=== PATIENT | female | born 1950 | race Caucasian/White ===

== ENCOUNTER 2019-06-20 09:22 | Emergency (ER) | payer MEDICARE ==
[2019-06-20] MEDS ORDERED: solu-MEDROL 125 MG ONE (09:26)
[2019-06-20] MEDS ORDERED: Zofran 4 MG/2 ML VIAL ONE ×2 (09:26→13:09)
[2019-06-20] MEDS ORDERED: DUONEB 0.5-3 MG/3 ml Neb IH ONE ×2 (09:28→09:45)
[2019-06-20] MEDS ORDERED: Sodium Chloride 0.9% 1000 ML 1,000 ML ONE (09:28)
[2019-06-20] MEDS: DUONEB 0.5-3 MG/3 ml Neb IH ONE ×3 (09:37→10:11)
[2019-06-20] MEDS: Sodium Chloride 0.9% 1000 ML 1,000 ML IV STA (09:48)
[2019-06-20] MEDS: solu-MEDROL 125 MG IV ONE (09:48)
--- NOTE | 2019-06-20 09:48 | ERPHSYRPT ---
- History of Present Illness Time Seen by Provider: 06/20/19 09:24 Source: patient, EMS Physician History: 68 years old female with history of COPD is burning the ER by EMS with chief complaint of shortness of breath for the last 3 days. EMS found her on the floor with oxygen saturation around 75% on room air. She is placed on nonrebreather and on presentation still having respiratory distress. She is complaining of productive cough of yellow green sputum with more wheezing and tightness in the chest. Denies any fever or chills. Further history is limited secondary to acuity of condition. Timing/Duration: day(s) (3) Severity of Dyspnea-Max: severe Severity of Dyspnea-Current: severe Modifying Factors: Improves With: coughing Associated Symptoms: cough, wheezing, No leg swelling Allergies/Adverse Reactions: ciprofloxacin [From Cipro] Allergy (Severe, Verified 06/20/19 09:45) Swelling diphenhydramine HCl [From Benadryl] Allergy (Intermediate, Verified 03/26/14 13: 20) swelling, hives, seizures pentazocine lactate [From Talwin] Allergy (Intermediate, Verified 03/26/14 13:20 ) swelling, hives Penicillins Allergy (Verified 03/26/14 13:20) swelling,hives Home Medications: Bumetanide 1 mg [Bumex 1 mg] 1 mg PO DAILY 01/24/17 [History] Ergocalciferol (Vitamin D2) [Vitamin D] 50,000 unit PO WEEKLY 01/24/17 [History] Fluticasone/Salmeterol Disc [Advair 250-50 Diskus 14 Dose] 1 each IH BID 01/24/17 [History] Hydrocodone/Acetaminophen [Hydrocodon-Acetaminophn 10-325] 1 ea PO Q6H PRN PRN 01/24/17 [History] Levothyroxine Sodium 75 Mcg [Synthroid 75 Mcg] 75 mcg PO DAILY 01/24/17 [ History] Oxybutynin Chloride [Ditropan Xl] 5 mg PO BID 01/24/17 [History] Sotalol HCl 80 mg [Betapace 80 MG] 80 mg PO BID 01/24/17 [History] Hx Tetanus, Diphtheria Vaccination/Date Given: Yes Hx Influenza Vaccination/Date Given: No Hx Pneumococcal Vaccination/Date Given: No - Review of Systems Constitutional: Fatigue, Malaise Ears, Nose, & Throat: No Symptoms Respiratory: Cough, Dyspnea, Dyspnea on Exertion (MORIN), Wheezing Cardiac: Palpitations Abdominal/Gastrointestinal: No Symptoms Musculoskeletal: No Symptoms Skin: No Symptoms Neurological: No Symptoms Psychological: No Symptoms Endocrine: No Symptoms Hematologic/Lymphatic: No Symptoms Immunological/Allergic: No Symptoms - Past Medical History Pertinent Past Medical History: Yes Neurological History: Migraines, TIA ENT History: Cataracts Cardiac History: Hypertension, Other Respiratory History: COPD Endocrine Medical History: Thyroid Cancer Musculoskeletal History: Fibromyalgia, Osteoporosis, Rheumatoid Arthritis, Other GI Medical History: Diverticulosis History: No Pertinent History Psycho-Social History: No Pertinent History Female Reproductive Disorders: No Pertinent History Other Medical History: mvp. lupus. thyroid cancer. sepis of rt knee - Past Surgical History Past Surgical History: Yes Neuro Surgical History: No Pertinent History Cardiac: Cardiac Catheterization Respiratory: No Pertinent History Gastrointestinal: Cholecystectomy Genitourinary: No Pertinent History Musculoskeletal: Joint Replacement, Orthopedic Surgery Female Surgical History: Hysterectomy, Other Other Surgical History: bilateral cataracts,. bladder surgery. intestinal and stomach surgery. hiatal hernia repair. back surgery. right hip replacement. right knee replacement. I&D of rt knee - Social History Smoking Status: Former smoker How long have you smoked: 40 Exposure to second hand smoke: No Drug Use: none Patient Lives Alone: No - Nursing Vital Signs Nursing Vital Signs: Initial Vital Signs Pulse Rate 52 L 06/20/19 09:23 Respiratory Rate 28 H 06/20/19 09:23 Blood Pressure 122/95 06/20/19 09:23 O2 Sat by Pulse Oximetry 90 L 06/20/19 09:23 Pain Scale Pain Intensity 0 - Physical Exam General Appearance: moderate distress, alert Eye Exam: eyes nml inspection Ears, Nose, Throat Exam: hearing grossly normal, pharyngeal erythema Neck Exam: normal inspection, non-tender Respiratory Exam: respiratory distress, diminished breath sounds, accessory muscle use, wheezing, No chest tenderness Cardiovascular/Chest Exam: normal heart sounds, regular rate/rhythm Abdominal/Gastrointestinal Exam: soft, normal bowel sounds, No tenderness, No distention Extremity Exam: non-tender, normal range of motion Neurologic Exam: alert, oriented x 3, cooperative Skin Exam: normal color SpO2 Interpretation: O2 applied O2 Delivery: Nasal Cannula - Course Nursing assessment & vital signs reviewed: Yes EKG Interpreted by Me: RATE (120), Left [place] Deviation, Other Ordered Tests: Active Orders 24 hr Category Date Time Status [employer] G[employer]r STAT Care 06/20/19 09:42 Active EKG-ER Only STAT Care 06/20/19 09:40 Active CHEST 1 VIEW (PORTABLE) Stat Exams 06/20/19 09:42 Completed ABG [ARTERIAL BLOOD GASES] Urgent Lab 06/20/19 09:35 Ordered ARTERIAL BLOOD GASES Stat Lab 06/20/19 10:00 Results BLOOD CULTURE Stat Lab 06/20/19 10:14 Received CBC W DIFF Stat Lab 06/20/19 10:14 Completed CK (IN-HOUSE) [CK-Creatinine Phosphokinase] Stat Lab 06/20/19 10:14 Completed CMP Stat Lab 06/20/19 10:14 Completed CULTURE,SPUTUM Stat Lab 06/20/19 09:42 Uncollected Lactic Acid Stat Lab 06/20/19 10:00 Results MAGNESIUM Stat Lab 06/20/19 10:14 Completed Manual Differential NC Stat Lab 06/20/19 10:14 Completed NT PRO BNP Stat Lab 06/20/19 10:14 Completed TROPONIN Q3H Lab 06/20/19 10:20 Completed TROPONIN Q3H Lab 06/20/19 12:45 Ordered TROPONIN Q3H Lab 06/20/19 15:45 Ordered TROPONIN Q3H Lab 06/20/19 18:45 Ordered TROPONIN Q3H Lab 06/20/19 21:45 Ordered BiPap/CPAP STAT RT 06/20/19 09:40 Active Respiratory Therapy Assessment DAILY RT 06/20/19 09:38 Active Medication Summary Generic Name Dose Route Start Last Admin Trade Name Freq PRN Reason Stop Dose Admin Azithromycin 500 mg in 250 mls @ 250 mls/hr 06/20/19 10:49 Zithromax 500 Mg/ 250 Ml Nacl Premix IV 06/20/19 11:48 STAT STA Discontinued Medications Generic Name Dose Route Start Last Admin Trade Name Freq PRN Reason Stop Dose Admin Albuterol/Ipratropium Confirm 06/20/19 09:28 Duoneb 0.5-3 Mg/3 Ml Neb Administered 06/20/19 09:29 Dose 3 ml IH .STK-MED ONE Albuterol/Ipratropium 3 ml 06/20/19 09:36 06/20/19 09:37 Duoneb 0.5-3 Mg/3 Ml Neb IH 06/20/19 09:37 3 ml STAT ONE Administration Albuterol/Ipratropium 3 ml 06/20/19 09:40 06/20/19 09:44 Duoneb 0.5-3 Mg/3 Ml Neb IH 06/20/19 09:41 3 ml STAT ONE Administration Albuterol/Ipratropium Confirm 06/20/19 09:45 Duoneb 0.5-3 Mg/3 Ml Neb Administered 06/20/19 09:46 Dose 3 ml IH .STK-MED ONE Albuterol/Ipratropium 3 ml 06/20/19 10:09 06/20/19 10:11 Duoneb 0.5-3 Mg/3 Ml Neb IH 06/20/19 10:10 Not Given STAT ONE Aspirin 324 mg 06/20/19 11:16 06/20/19 11:42 Baby Aspirin 81 Mg Chew PO 06/20/19 11:17 324 mg STAT ONE Administration Sodium Chloride Confirm 06/20/19 09:28 Sodium Chloride 0.9% 1000 Ml Administered 06/20/19 09:29 Dose 1,000 mls @ ud .ROUTE .STK-MED ONE Sodium Chloride 1,000 mls @ 999 mls/hr 06/20/19 09:40 06/20/19 11:27 Sodium Chloride 0.9% 1000 Ml IV 06/20/19 10:40 Infused .Q1H1M STA Infusion Ceftriaxone Sodium/Dextrose 1 g in 50 mls @ 100 mls/hr 06/20/19 10:49 Rocephin 1 Gm-D5w 50 Ml Bag IV 06/20/19 11:18 STAT STA Sodium Chloride Confirm 06/20/19 11:06 Sodium Chloride 0.9% 500 Ml Administered 06/20/19 11:07 Dose 500 mls @ ud IV .STK-MED ONE Methylprednisolone Sodium Succinate Confirm 06/20/19 09:26 Solu-Medrol 125 Mg Administered 06/20/19 09:27 Dose 125 mg .ROUTE .STK-MED ONE Methylprednisolone Sodium Succinate 125 mg 06/20/19 09:40 06/20/19 09:48 Solu-Medrol 125 Mg IV 06/20/19 09:41 125 mg STAT ONE Administration Ondansetron HCl Confirm 06/20/19 09:26 Zofran 4 Mg/2 Ml Vial Administered 06/20/19 09:27 Dose 4 mg .ROUTE .STK-MED ONE Ondansetron HCl 4 mg 06/20/19 09:48 06/20/19 09:49 Zofran 4 Mg/2 Ml Vial IV 06/20/19 09:49 4 mg STAT ONE Administration Lab/Rad Data: Laboratory Result Diagrams 06/20/19 10:14 06/20/19 10:14 Laboratory Results 06/20/19 06/20/19 06/20/19 Range/Units 10:20 10:14 10:14 WBC (4.0-10.5) K/mm3 RBC (4.1-5.4) M/mm3 Hgb (12.0-16.0) gm/dl Hct (35-47) % MCV (78-100) fl MCH (26-32) pg MCHC (32-36) g/dl RDW (11.5-14.0) % Plt Count (150-450) K/mm3 MPV (6-9.5) fl Segmented Neutrophils (36.0-66.0) % Band Neutrophils (0.0-2.0) % Lymphocytes (Manual) (24-44) % Monocytes (Manual) (0.0-12.0) % Toxic Granulation Platelet Estimate (NORMAL) RBC Morphology Puncture Site pCO2 (35-45) mmHg pO2 (75-100) mmHg Base Excess (-2.0-2.0) O2 Saturation (94-100) g/dF ABG pH (7.35-7.45) ABG HCO3 (22-28) ABG O2 Sat (Measured) (95-100) % Nicola Test A-a Gradient a/A Ratio Hemoglobin Carboxyhemoglobin (0.0-6.9) % THgb Methemoglobin (1.4-1.5) % Potassium 5.5 H (3.5-5.1) Temperature C POC O2 Flow Rate % Sodium 145 (137-145) mmol/L Chloride 112 H (98-107) mmol/L Carbon Dioxide 27 (22-30) mmol/L Anion Gap 11.4 (5-15) MEQ/L BUN 14 (7-17) mg/dL Creatinine 0.74 (0.52-1.04) mg/dL Estimated GFR > 60.0 ML/MIN Glucose 236 H (74-106) mg/dL Lactic Acid (0.4-2.0) Calcium 8.1 L (8.4-10.2) mg/dL Magnesium 2.1 (1.6-2.3) mg/dL Total Bilirubin 0.30 (0.2-1.3) mg/dL AST 120 H (14-36) U/L ALT 44 H (0-35) U/L Alkaline Phosphatase 83 (38-126) U/L Creatine Kinase 49 (30-135) U/L Troponin I 0.429 H* (0.000-0.034) ng/mL NT-Pro-B Natriuret Pep 5640 H (0-900) pg/mL Serum Total Protein 5.7 L (6.3-8.2) g/dL Albumin 3.1 L (3.5-5.0) g/dL 06/20/19 06/20/19 Range/Units 10:14 10:00 WBC 15.3 H (4.0-10.5) K/mm3 RBC 4.06 L (4.1-5.4) M/mm3 Hgb 13.7 (12.0-16.0) gm/dl Hct 43.2 (35-47) % MCV 106.4 H (78-100) fl MCH 33.7 H (26-32) pg MCHC 31.7 L (32-36) g/dl RDW 13.0 (11.5-14.0) % Plt Count 250 (150-450) K/mm3 MPV 10.7 H (6-9.5) fl Segmented Neutrophils 85 H (36.0-66.0) % Band Neutrophils 3 H (0.0-2.0) % Lymphocytes (Manual) 8 L (24-44) % Monocytes (Manual) 4 (0.0-12.0) % Toxic Granulation 1+ Platelet Estimate NORMAL (NORMAL) RBC Morphology NORMAL Puncture Site RIGHT BRACHIAL pCO2 45 (35-45) mmHg pO2 64 L (75-100) mmHg Base Excess -6.1 L (-2.0-2.0) O2 Saturation 89.5 L (94-100) g/dF ABG pH 7.27 L (7.35-7.45) ABG HCO3 20.7 L (22-28) ABG O2 Sat (Measured) 92.4 L (95-100) % Nicola Test NOT APPLICABLE A-a Gradient 136 a/A Ratio 0.32 Hemoglobin 12.4 Carboxyhemoglobin 2.5 (0.0-6.9) % THgb Methemoglobin 0.7 L (1.4-1.5) % Potassium 4.2 (3.5-5.1) Temperature 37.0 C POC O2 Flow Rate 36 % Sodium (137-145) mmol/L Chloride (98-107) mmol/L Carbon Dioxide (22-30) mmol/L Anion Gap (5-15) MEQ/L BUN (7-17) mg/dL Creatinine (0.52-1.04) mg/dL Estimated GFR ML/MIN Glucose (74-106) mg/dL Lactic Acid 3.7 H (0.4-2.0) Calcium (8.4-10.2) mg/dL Magnesium (1.6-2.3) mg/dL Total Bilirubin (0.2-1.3) mg/dL AST (14-36) U/L ALT (0-35) U/L Alkaline Phosphatase (38-126) U/L Creatine Kinase (30-135) U/L Troponin I (0.000-0.034) ng/mL NT-Pro-B Natriuret Pep (0-900) pg/mL Serum Total Protein (6.3-8.2) g/dL Albumin (3.5-5.0) g/dL - Progress Progress: improved, re-examined Air Movement: fair Progress Note: 6 ED his old is brought in the ER with severe respiratory distress. She is given multiple DuoNeb treatments/steroids IV but still had some difficulty breathing with accessory muscle use. ABG showed pH 7.2 the chest x-ray showing pulmonary edema but no cardiomegaly. She does have elevated BNP with elevated lactate of 3.7. Started on IV antibiotics. Given a bolus of fluid. I believe patient has COPD exacerbation the developing pneumonia and some element of CHF exacerbation as well with elevated BNP and troponin of 0.42. EKG did not show any acute ST elevations but does have some T-wave inversions in lateral leads. She is given aspirin. On reevaluation the patient is feeling better. Discussed with Dr. Reynolds, recommended transfer to high level of care because of her multiple comorbidities needed speciality care. 06/20/19 11:18 06/20/19 11:44 D/W at [facility] and patient is accepted for transfer. Blood Culture(s) Obtained: Yes Antibiotics given: Yes Discussed with : Ellie Will see patient in: other (transfer to higher level of care ) Counseled pt/family regarding: lab results, diagnosis, need for follow-up, rad results - Departure Departure Disposition: Transfer Clinical Impression: NSTEMI (non-ST elevated myocardial infarction), COPD exacerbation Respiratory failure Qualifiers: Chronicity: acute on chronic Respiratory failure complication: hypoxia Qualified Code(s): J96.21 - Acute and chronic respiratory failure with hypoxia Sepsis Qualifiers: Sepsis type: sepsis due to unspecified organism Sepsis acute organ dysfunction status: with acute organ dysfunction Severe sepsis acute organ dysfunction type : acute respiratory failure Acute respiratory failure type: with hypoxia Severe sepsis shock status: without septic shock Qualified Code(s): A41.9 - Sepsis, unspecified organism; R65.20 - Severe sepsis without septic shock; J96.01 - Acute respiratory failure with hypoxia Condition: Fair Critical Care Time: Yes Critical Care Time(excluding separately billable procedures): Critical 30-74 mins Referrals: CHANG MENDOZA MD [Primary Care Provider] - Instructions: Chronic Obstructive Pulmonary Disease
[2019-06-20] MEDS: Zofran 4 MG/2 ML VIAL IV ONE ×2 (09:49→13:13)
--- NOTE | 2019-06-20 10:05 | XRAY ---
Indication: Short of breath. Comparison: March 20, 2009. Portable chest demonstrates new diffuse pulmonary edema with small bibasilar effusions. Heart is not enlarged. Bony thorax again demonstrates osteopenia with interval T8-T11 kyphoplasty and lower cervical fusion surgery. Impression: New diffuse pulmonary edema and small effusions without cardiomegaly. Rule out noncardiogenic causes.
[2019-06-20 10:06] LABS: A-aADO2 136; ABG HEMOGLOBIN 12.4; ABG POTASSIUM 4.2 (3.5-5.1); ARTERIAL BLD GAS O2 SATURATION 92.4 % (95-100); ARTERIAL BLOOD GAS BASE EXCESS -6.1 (-2.0-2.0); ARTERIAL BLOOD GAS FIO2 36 %; ARTERIAL BLOOD GAS PCO2 45 mmHg (35-45); ARTERIAL BLOOD GAS PO2 64 mmHg (75-100); ARTERIAL BLOOD GAS pH 7.27 (7.35-7.45); CARBOXYHEMOGLOBIN 2.5 % THgb (0.0-6.9); HCO3- 20.7 (22-28); HGB O2 SAT 89.5 g/dF (94-100); Lactic Acid 3.7 (0.4-2.0); Methhemoglobin 0.7 % (1.4-1.5); paO2 pAO1 0.32
[2019-06-20 10:07] LABS: ABG SITE RIGHT BRACHIAL
[2019-06-20 10:39] LABS: Hematocrit 43.2 % (35-47); Hemoglobin 13.7 gm/dl (12.0-16.0); Mean Cell Volume 106.4 fl (78-100); Mean Corpuscular Hemoglobin 33.7 pg (26-32); Mean Corpuscular Hgb Concent. 31.7 g/dl (32-36); Mean Platelet Volume 10.7 fl (6-9.5); Platelet Count 250 K/mm3 (150-450); Red Blood Count 4.06 M/mm3 (4.1-5.4); White Blood Count 15.3 K/mm3 (4.0-10.5)
[2019-06-20 11:03] LABS: ALBUMIN 3.1 g/dL (3.5-5.0); ALKALINE PHOSPHATASE 83 U/L (38-126); ANION GAP 11.4 MEQ/L (5-15); BLOOD UREA NITROGEN 14 mg/dL (7-17); CHLORIDE 112 mmol/L (98-107); Calcium 8.1 mg/dL (8.4-10.2); Carbon Dioxide 27 mmol/L (22-30); Creatinine 1 0.74 mg/dL (0.52-1.04); Glucose 236 mg/dL (74-106); MAGNESIUM 2.1 mg/dL (1.6-2.3); NT PRO BNP 5640 pg/mL (0-900); Potassium 5.5 mmol/L (3.5-5.1); SGOT/AST 120 U/L (14-36); SGPT/ALT 44 U/L (0-35); SODIUM 145 mmol/L (137-145); Total Protein 5.7 g/dL (6.3-8.2)
[2019-06-20] MEDS ORDERED: Sodium Chloride 0.9% 500 ML 500 ML IV ONE (11:06)
[2019-06-20 11:24] LABS: BAND 3 % (0.0-2.0); Lymphocytes 8 % (24-44); Monocyte 4 % (0.0-12.0); Neutrophils 85 % (36.0-66.0); Total Cells Counted 100
[2019-06-20 11:25] LABS: Toxic Granulation 1+
[2019-06-20 11:26] LABS: Platelet Estimate NORMAL (NORMAL)
[2019-06-20] MEDS: BABY ASPIRIN 81 MG CHEW PO ONE (11:42)
[2019-06-20] MEDS ORDERED: ROCEPHIN 1 Gm-D5w 50 ml Bag** 1 G/50 ML IVPB IV ONE (12:26)
[2019-06-20] MEDS: ROCEPHIN 1 Gm-D5w 50 ml Bag** 1 G/50 ML IVPB IV STA (12:31)
[2019-06-20] MEDS ORDERED: Zithromax 500 MG/ 250 ML NaCl Premix 500 MG/250 ML IVPB IV ONE (12:32)
[2019-06-20] MEDS: Zithromax 500 MG/ 250 ML NaCl Premix 500 MG/250 ML IVPB IV STA (12:40)
[2019-06-20 13:12] VITALS: BP 121/74; PULSE 110; O2SAT 96
== END 2019-06-20 13:13 ==
LOC: ED 09:22
DX: I21.3 ST elevation (STEMI) myocardial infarction of unspecified site (principal); J44.1 Chronic obstructive pulmonary disease with (acute) exacerbation; J96.21 Acute and chronic respiratory failure with hypoxia; A41.9 Sepsis, unspecified organism; R65.20 Severe sepsis without septic shock; J96.01 Acute respiratory failure with hypoxia; I10 Essential (primary) hypertension
CPT/HCPCS: 36415; 36600; 71045; 80053; 82375; 82550; 82803; 83605; 83735; 83880; 84484; 85025; 87040; 93005; 93041; 94640; 96360; 96365; 96368; 96374; 96375; 96376; 99285; 99291; J0456; J0696; J2405; J2930; A9270-GY

== ENCOUNTER 2020-04-22 12:55 | Emergency (ER) | payer MEDICARE ==
[2020-04-22] MEDS ORDERED: MORPHINE SULFATE 4 MG INJ IV ONE (13:17)
[2020-04-22] MEDS ORDERED: MORPHINE SULFATE 4 MG INJ IM STA (13:22)
--- NOTE | 2020-04-22 13:22 | ERPHSYRPT ---
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 has herb to right stump no drainage noted, no reddness or swelling Physician History: Patient is a 69-year-old female who presents to our ED for evaluation of a postsurgical wound. 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 Patient had a revision 3 days ago. Patient observed a clear drainage from the wound. Patient became concerned for possible infection. She checked her temperature and found it to be 100. Patient concern for infection. No trauma. No nausea or vomiting. No diarrhea. No rash. Patient has been taking her pain medication as prescribed. Patient voices no other complaints at this time. Timing/Duration: today Severity: moderate Associated Symptoms: No nausea, No vomiting, No abdominal pain, No shortness of breath, No heartburn, No diaphoresis, No cough, No chills, No chest pain, No fever, No headaches, No loss of appetite, No malaise, No syncope, No seizure, No weakness Allergies/Adverse Reactions: ciprofloxacin [From Cipro] Allergy (Severe, Verified 04/22/20 13:12) Swelling diphenhydramine HCl [From Benadryl] Allergy (Intermediate, Verified 04/22/20 13:12) swelling, hives, seizures pentazocine lactate [From Talwin] Allergy (Intermediate, Verified 04/22/20 13:12) swelling, hives Penicillins Allergy (Verified 04/22/20 13:12) swelling,hives Home Medications: Ergocalciferol (Vitamin D2) [Vitamin D] 50,000 unit PO WEEKLY 01/24/17 [History] Fluticasone/Salmeterol Disc [Advair 250-50 Diskus 14 Dose] 1 each IH BID 01/24/17 [History] Hydrocodone/Acetaminophen [Hydrocodon-Acetaminophn 10-325] 1 ea PO Q6H PRN PRN 01/24/17 [History] Levothyroxine Sodium 75 Mcg [Synthroid 75 Mcg] 75 mcg PO DAILY 01/24/17 [History] Oxybutynin Chloride [Ditropan Xl] 5 mg PO BID 01/24/17 [History] Hx Tetanus, Diphtheria Vaccination/Date Given: Yes Hx Influenza Vaccination/Date Given: Yes Hx Pneumococcal Vaccination/Date Given: Yes Travel Risk - International Travel Have you traveled outside of the country in past 3 weeks: No - Coronavirus Screening Are you exhibiting any of the following symptoms?: No Close contact with a COVID-19 positive Pt in past 14-21 Days: No - Review of Systems Constitutional: No Symptoms, No Fever, No Chills Eyes: No Symptoms Ears, Nose, & Throat: No Symptoms Respiratory: No Symptoms, No Cough, No Dyspnea Cardiac: No Symptoms, No Chest Pain, No Edema, No Syncope Abdominal/Gastrointestinal: No Symptoms, No Abdominal Pain, No Nausea, No Vomiting, No Diarrhea Genitourinary Symptoms: No Symptoms, No Dysuria Musculoskeletal: No Symptoms, No Back Pain, No Neck Pain Skin: No Symptoms, No Rash Neurological: No Symptoms, No Dizziness, No Focal Weakness, No Sensory Changes Psychological: No Symptoms Endocrine: No Symptoms Hematologic/Lymphatic: No Symptoms Immunological/Allergic: No Symptoms All Other Systems: Reviewed and Negative - Past Medical History Pertinent Past Medical History: Yes Neurological History: Migraines, TIA ENT History: Cataracts Cardiac History: Hypertension, Other Respiratory History: COPD Endocrine Medical History: Thyroid Cancer Musculoskeletal History: Fibromyalgia, Osteoporosis, Rheumatoid Arthritis, Other GI Medical History: Diverticulosis History: No Pertinent History Psycho-Social History: No Pertinent History Female Reproductive Disorders: No Pertinent History Other Medical History: mvp. lupus. thyroid cancer. sepis of rt knee - Past Surgical History Past Surgical History: Yes Neuro Surgical History: No Pertinent History Cardiac: Cardiac Catheterization Respiratory: No Pertinent History Gastrointestinal: Cholecystectomy Genitourinary: No Pertinent History Musculoskeletal: Amputation, Joint Replacement, Orthopedic Surgery Female Surgical History: Hysterectomy, Other Other Surgical History: bilateral cataracts,. bladder surgery. intestinal and stomach surgery. hiatal hernia repair. back surgery. right hip replacement. right knee replacement. I&D of rt knee - Social History Smoking Status: Former smoker How long have you smoked: 40 Exposure to second hand smoke: No Drug Use: none Patient Lives Alone: No - Female History Hx Last Menstrual Period: post Hx Now: No - Nursing Vital Signs Nursing Vital Signs: Initial Vital Signs Temperature 98.3 F 04/22/20 12:59 Pulse Rate 96 H 04/22/20 12:59 Respiratory Rate 16 04/22/20 12:59 Blood Pressure 151/91 04/22/20 12:59 O2 Sat by Pulse Oximetry 96 04/22/20 12:59 Pain Scale Pain Intensity 10 - Physical Exam General Appearance: no apparent distress, alert Eye Exam: PERRL/EOMI, eyes nml inspection Ears, Nose, Throat Exam: normal ENT inspection, TMs normal, pharynx normal, moist mucous membranes Neck Exam: normal inspection, non-tender, supple, full range of motion Respiratory Exam: normal breath sounds, lungs clear, No respiratory distress Cardiovascular Exam: regular rate/rhythm, normal heart sounds, normal peripheral pulses Gastrointestinal/Abdomen Exam: soft, normal bowel sounds, No tenderness, No mass Back Exam: normal inspection, normal range of motion, No CVA tenderness, No vertebral tenderness Extremity Exam: normal inspection, normal range of motion, pelvis stable, other (Right above-knee amputation. [place] intact. No active drainage. No cellulitis. No lymphangitis. No lymphadenopathy. No foul odor. The wound appears to be healing well. Patient currently afebrile.) Neurologic Exam: alert, oriented x 3, cooperative, normal mood/affect, nml cerebellar function, sensation nml, No motor deficits Skin Exam: normal color, warm, dry, No rash Lymphatic Exam: No adenopathy SpO2 Interpretation: normal SpO2: 96 O2 Delivery: Room Air - Course Nursing assessment & vital signs reviewed: Yes Ordered Tests: Active Orders 24 hr Category Date Time Status UA W/RFX UR CULTURE Stat Lab 04/22/20 13:19 Completed Medication Summary Discontinued Medications Generic Name Dose Route Start Last Admin Trade Name Freq PRN Reason Stop Dose Admin Morphine Sulfate 4 mg 04/22/20 13:17 04/22/20 13:21 Morphine Sulfate 4 Mg Inj IV 04/22/20 13:18 Not Given STAT ONE Morphine Sulfate 4 mg 04/22/20 13:22 04/22/20 13:27 Morphine Sulfate 4 Mg Inj IM 04/22/20 13:23 4 mg ONCE STA Administration Morphine Sulfate Confirm 04/22/20 13:25 Morphine Sulfate 4 Mg Inj Administered 04/22/20 13:26 Dose 4 mg .ROUTE .STK-MED ONE Lab/Rad Data: Laboratory Results 04/22/20 Range/Units 13:19 Urine Color YELLOW (YELLOW) Urine Appearance CLEAR (CLEAR) Urine pH 9.0 (5-6) Ur Specific [place] 1.008 (1.005-1.025) Urine Protein NEGATIVE (Negative) Urine Ketones NEGATIVE (NEGATIVE) Urine Blood SMALL (0-5) Fady/ul Urine Nitrite NEGATIVE (NEGATIVE) Urine Bilirubin NEGATIVE (NEGATIVE) Urine Urobilinogen NEGATIVE (0-1) mg/dL Ur Leukocyte Esterase NEGATIVE (NEGATIVE) Urine WBC (Auto) NONE (0-5) /HPF Urine RBC (Auto) 0-2 (0-2) /HPF U Epithel Cells (Auto) NONE (FEW) /HPF Urine Bacteria (Auto) NONE (NEGATIVE) /HPF Urine Culture Reflexed NO (NO) Urine Glucose NEGATIVE (NEGATIVE) mg/dL - Progress Progress: improved Progress Note: 04/22/20 13:29 Patient reassessed. Pain improved. Patient requesting discharge. No indication for imaging studies or further work-up at this time. Patient currently afebrile. The wound appears to be healing well. UA shows microscopic hematuria. No UTI. Patient currently has a follow-up appointment scheduled with her physician in 10 days. Patient advised to reschedule for sooner appointment for reevaluation. Patient agrees to do so. 04/22/20 13:51 Counseled pt/family regarding: diagnosis, need for follow-up - Departure Departure Disposition: Home Clinical Impression: Visit for wound check, Post-operative pain, Microscopic hematuria Condition: Stable Critical Care Time: No Referrals: TESSY VEGAS [Primary Care Provider] - Additional Instructions: Discharge/Care Plan SPIKE WINKLER was seen on 04/22/20 in the Emergency Room. The patient was counseled regarding Diagnosis,Lab results, Imaging studies, need for follow up and when to return to the Emergency Room. Prescriptions given: Discharge Note I have spoken with the patient and/or caregivers. I have explained the patient's condition, diagnosis and treatment plan based on the information available to me at this time. I have answered the patient's and/or caregiver's questions and addressed any concerns. The patient and/or caregivers have as good understanding of the patient's diagnosis, condition and treatment plan as can be expected at this point. The vital signs have been stable. The patient's condition is stable and appropriate for discharge from the emergency department. The patient will pursue further outpatient evaluation with the primary care physician or other designated or consulting physician as outlined in the disch arge instructions. The patient and/or caregivers are agreeable to this plan of care and follow-up instructions have been explained in detail. The patient and/or caregivers have received these instruction. The patient/and or caregivers are aware that any significant change in condition or worsening of symptoms should prompt an immediate return to this or the closest emergency department or call 911.
[2020-04-22] MEDS ORDERED: MORPHINE SULFATE 4 MG INJ ONE (13:25)
[2020-04-22 13:43] LABS: Appearance CLEAR (CLEAR); Bilirubin NEGATIVE (NEGATIVE); Blood SMALL Ery/ul (0-5); Glucose NEGATIVE (NEGATIVE); Ketones NEGATIVE (NEGATIVE); Leukocyte Esterase NEGATIVE (NEGATIVE); Nitrite NEGATIVE (NEGATIVE); Protein,Urine Dip NEGATIVE (Negative); RBC 0-2 /HPF (0-2); Specific Gravity 1.008 (1.005-1.025); Urobilinogen NEGATIVE mg/dL (0-1)
[2020-04-22 14:00] VITALS: BP 142/82; PULSE 88; O2SAT 98
== END 2020-04-22 14:10 | disposition home or self-care (01) ==
LOC: ED 12:55
DX: Z48.89 Encounter for other specified surgical aftercare (principal); G89.18 Other acute postprocedural pain; R31.29 Other microscopic hematuria; I10 Essential (primary) hypertension; J44.9 Chronic obstructive pulmonary disease, unspecified; Z85.850 Personal history of malignant neoplasm of thyroid; M81.0 Age-related osteoporosis without current pathological fracture; M06.9 Rheumatoid arthritis, unspecified; M79.7 Fibromyalgia
CPT/HCPCS: 81001; 96372; 99284; J2270

== ENCOUNTER 2021-07-28 22:57 | Inpatient (IN) | payer MEDICARE ==
--- NOTE | 2021-07-28 22:58 | ERPHSYRPT ---
- History of Present Illness Time Seen by Provider: 07/28/21 22:58 Source: patient, EMS Physician History: This is a 70-year-old white female who presents via EMS confused. The patients family called EMS because of this sudden onset of confusion approximately 25 minutes prior to their arrival. Patient does take sertraline, Ativan, hydrocodone and morphine. Family does not believe that she took too much of this but is a possibility. Patient arrives to the emergency department moving all her extremities but confused. Patient has a history of migraine headache, hypertension, COPD, and hypothyroidism. There is no known history of head trauma this evening. Timing/Duration: today Severity: moderate Deficits: cannot stand, cannot walk Baseline/Normal Cognition: alert oriented x 3 Current Cognition: alert but confused Baseline Gait: walks w/o assistance Associated Symptoms: confusion, No loss of consciousness Allergies/Adverse Reactions: ciprofloxacin [From Cipro] Allergy (Severe, Verified 07/29/21 01:56) Swelling diphenhydramine HCl [From Benadryl] Allergy (Intermediate, Verified 07/29/21 01:56) swelling, hives, seizures pentazocine lactate [From Talwin] Allergy (Intermediate, Verified 07/29/21 01:56) swelling, hives Penicillins Allergy (Verified 07/29/21 01:56) swelling,hives Home Medications: Hydrocodone/Acetaminophen [Hydrocodon-Acetaminophn 10-325] 1 ea PO Q6H PRN PRN 01/24/17 [History] Levothyroxine Sodium 75 Mcg [Synthroid 75 Mcg] 175 mcg PO DAILY 01/24/17 [History] Albuterol Sulfate 4 mg PO DAILY 07/29/21 [History] Amitriptyline HCl 25 mg [Elavil 25 mg] 25 mg PO HS 07/29/21 [History] Atorvastatin Calcium [Lipitor] 40 mg PO DAILY 07/29/21 [History] Calcium Citrate/Vitamin D3 [Citracal-Vit D3 200 mg-250 Tab] 2 each PO TID 07/29/21 [History] Cariprazine HCl [Vraylar] 3 mg PO DAILY 07/29/21 [History] Furosemide [Lasix] 20 mg PO DAILY 07/29/21 [History] Gabapentin 300 mg [Neurontin 300 mg] 600 mg PO TID 12/08/21 [History] Iron Polysaccharides Complex [Ferrex 150] 150 mg PO DAILY 07/29/21 [History] Lorazepam 1 mg [Ativan 1 MG] 1 mg PO TID 07/29/21 [History] Metoprolol Succinate [Toprol Xl] 25 mg PO DAILY 07/29/21 [History] Morphine Sulfate [Morphine Sulfate ER] 15 mg PO BID 07/29/21 [History] Multivitamin with Minerals [One Daily Complete] 1 each PO DAILY 07/29/21 [History] Oxybutynin Chloride [Oxybutynin Chloride ER] 5 mg PO DAILY 07/29/21 [History] Potassium Gluconate [Potassium] 99 mg PO DAILY 07/29/21 [History] Sertraline HCl [Zoloft] 100 mg PO DAILY 07/29/21 [History] Sotalol HCl [Sotalol] 160 mg PO BID 07/29/21 [History] Spironolactone [Aldactone] 12.5 mg PO DAILY 07/29/21 [History] lisinopriL [Lisinopril] 2.5 mg PO DAILY 07/29/21 [History] Hx Tetanus, Diphtheria Vaccination/Date Given: Yes Hx Influenza Vaccination/Date Given: Yes Hx Pneumococcal Vaccination/Date Given: Yes Travel Risk - International Travel Have you traveled outside of the country in past 3 weeks: No - Coronavirus Screening Are you exhibiting any of the following symptoms?: No Close contact with a COVID-19 positive Pt in past 14-21 Days: No - Review of Systems Constitutional: Weakness Eyes: No Symptoms Ears, Nose, & Throat: No Symptoms Respiratory: No Symptoms Cardiac: No Symptoms Abdominal/Gastrointestinal: No Symptoms Genitourinary Symptoms: No Symptoms Musculoskeletal: No Symptoms Skin: No Symptoms Neurological: Other (Altered mental status, confusion) Psychological: No Symptoms Endocrine: No Symptoms Hematologic/Lymphatic: No Symptoms Immunological/Allergic: No Symptoms All Other Systems: Reviewed and Negative - Past Medical History Pertinent Past Medical History: Yes Neurological History: Migraines ENT History: Cataracts Cardiac History: Hypertension Respiratory History: COPD Endocrine Medical History: Hypothyroidism Musculoskeletal History: Other GI Medical History: Diverticulosis History: No Pertinent History Psycho-Social History: No Pertinent History Female Reproductive Disorders: No Pertinent History Other Medical History: mitral valve prolapse, R AKA - Past Surgical History Past Surgical History: Yes Neuro Surgical History: No Pertinent History Cardiac: Cardiac Catheterization Respiratory: No Pertinent History Gastrointestinal: Cholecystectomy Genitourinary: No Pertinent History Musculoskeletal: Amputation, Joint Replacement, Orthopedic Surgery Female Surgical History: Hysterectomy, Other Other Surgical History: bilateral cataracts,. bladder surgery. intestinal and stomach surgery. hiatal hernia repair. back surgery. right hip replacement. right knee replacement. I&D of rt knee - Social History Smoking Status: Former smoker How long have you smoked: 40 Exposure to second hand smoke: No Drug Use: none Patient Lives Alone: No - Nursing Vital Signs Nursing Vital Signs: Initial Vital Signs Temperature 100.3 F 07/28/21 23:28 Pulse Rate 117 H 07/28/21 23:28 Blood Pressure 133/67 07/28/21 23:28 O2 Sat by Pulse Oximetry 97 07/28/21 23:28 - Lewis Coma Scale Best Eye Response (Lewis): (4) open spontaneously Best Verbal Response (Lewis): (4) confused conversation Best Motor Response (Lewis): (5) localizes to pain Lewis Total: 13 - Physical Exam General Appearance: mild distress, alert, anxiety Eye Exam: bilateral eye: normal inspection, PERRL, EOMI Ears, Nose, Throat Exam: dry mucous membranes, other (Edentulous) Neck Exam: normal inspection, non-tender, supple, full range of motion Respiratory: normal breath sounds, lungs clear, airway intact, No chest tenderness, No respiratory distress Cardiovascular: regular rate/rhythm, normal heart sounds, normal peripheral pulses Gastrointestinal: soft, normal bowel sounds, tenderness (Questionable diffuse mild tenderness to palpation), guarding, No rebound Pelvic Exam: not done Rectal Exam: not done Back Exam: normal inspection, normal range of motion, No CVA tenderness, No vertebral tenderness Extremity Exam: normal inspection, normal range of motion, pelvis stable Mental Status: alert, disoriented to person, disoriented to place, disoriented to time, intoxicated appearance visual specialist Exam: normal hearing, PERRL, tongue midline Skin Exam: normal color, warm, dry SpO2 Interpretation: normal O2 Delivery: Room Air Procedures - Central Line Time Of Procedure: 00:15 Timeout: Performed Central Line Lumen: triple Lumen Size: 7 Ang[place] Central Line Procedure: chlorahexadine prep, sterile drapes applied, sterile dressing applied, Aseptic Technique, Seldinger Technique Central Line Postion: subclavian (L) Anesthesia: 1% Lidocaine cc's of anesthesia: 5 Ultrasound Guided Placement: No Complications: none Central Line Post Position: sutured, good blood return, chest x-ray ordered - Course Nursing assessment & vital signs reviewed: Yes EKG Interpreted by Me: RATE ([id number]), Sinus Tach, LAFB, prolonged QT interval, Other (No acute ischemic changes on today's EKG. No changes when compared to EKG dated 06/20/2019.) Ordered Tests: Active Orders 24 hr Category Date Time Status Catheter-Brighton Perez STAT Care 07/28/21 23:22 Active Catheter-Brighton Perez STAT Care 07/28/21 23:24 Active IV Insertion STAT Care 07/28/21 23:22 Active NPO (ED) STAT Care 07/28/21 23:22 Active Pulse Oximetry (ED) STAT Care 07/28/21 23:22 Active ABDOMEN AND PELVIS W/0 CONTRAS [CT] Stat Exams 07/28/21 23:43 Taken HEAD WITHOUT CONTRAST [CT] Stat Exams 07/28/21 23:10 Taken BLOOD CULTURE Stat Lab 07/29/21 00:15 Received INFLUENZA A+B MARCO ANTONIO Stat Lab 07/28/21 23:27 Completed Lactic Acid Stat Lab 07/28/21 23:22 Completed Lactic Acid Stat Lab 07/29/21 02:18 Received POTASSIUM, URINE RANDOM Stat Lab 07/29/21 01:54 Completed Sodium, Urine Stat Lab 07/29/21 01:54 Completed UA W/RFX UR CULTURE Stat Lab 07/29/21 00:28 Completed Transfer Order Routine Transfer 07/29/21 Ordered Medication Summary Generic Name Dose Route Start Last Admin Trade Name Freq PRN Reason Stop Dose Admin Sodium Chloride 1,000 mls @ 100 mls/hr 07/28/21 23:30 07/29/21 01:54 Sodium Chloride 0.9% 1000 Ml IV 08/27/21 23:29 Infused .Q10H ROXANN Infusion Sodium Chloride 1,000 mls @ 200 mls/hr 07/29/21 02:00 07/29/21 01:39 Sodium Chloride 0.45% 1000 Ml IV 08/28/21 01:59 200 mls/hr .Q5H ROXANN Administration Vancomycin HCl 1 gm in 200 mls @ 125 mls/hr 07/29/21 01:37 Vancomycin 1 Gram/200 Ml Bag IV 07/29/21 03:12 STAT ONE Discontinued Medications Generic Name Dose Route Start Last Admin Trade Name Red PRN Reason Stop Dose Admin Acetaminophen 650 mg 07/29/21 01:55 07/29/21 01:57 Acetaminophen 325 Mg Tablet PO 07/29/21 01:56 650 mg STAT STA Administration Acetaminophen Confirm 07/29/21 01:57 Acetaminophen 325 Mg Tablet Administered 07/29/21 01:58 Dose 650 mg .ROUTE .STK-MED ONE Ceftriaxone Sodium/Dextrose 1 g in 50 mls @ 100 mls/hr 07/29/21 01:09 07/29/21 01:35 Rocephin 1 Gm-D5w 50 Ml Bag IV 07/29/21 01:38 100 mls/hr STAT STA 100 mls/hr Administration Metronidazole 500 mg in 100 mls @ 200 mls/hr 07/29/21 01:09 07/29/21 01:35 Flagyl 500 Mg Ivpb IV 07/29/21 01:38 200 mls/hr STAT STA 200 mls/hr Administration Ceftriaxone Sodium/Dextrose Confirm 07/29/21 01:33 Rocephin 1 Gm-D5w 50 Ml Bag Administered 07/29/21 01:34 Dose 1 g in 50 mls @ ud IV .STK-MED ONE Metronidazole Confirm 07/29/21 01:33 Flagyl 500 Mg Ivpb Administered 07/29/21 01:34 Dose 500 mg in 100 mls @ ud IV .STK-MED ONE Ibuprofen 600 mg 07/29/21 01:55 07/29/21 01:58 Ibuprofen 600 Mg Tablet PO 07/29/21 01:56 600 mg STAT STA Administration Ibuprofen Confirm 07/29/21 01:57 Ibuprofen 600 Mg Tablet Administered 07/29/21 01:58 Dose 600 mg .ROUTE .STK-MED ONE Lorazepam 1 mg 07/28/21 23:50 07/28/21 23:55 Lorazepam 2 Mg/1 Ml 2 Mg Vial IV 07/28/21 23:51 1 mg STAT ONE Administration Lorazepam Confirm 07/28/21 23:50 Lorazepam 2 Mg/1 Ml 2 Mg Vial Administered 07/28/21 23:51 Dose 2 mg .ROUTE .STK-MED ONE Lorazepam 1 mg 07/29/21 02:02 07/29/21 02:25 Lorazepam 2 Mg/1 Ml 2 Mg Vial IV 07/29/21 02:03 1 mg STAT ONE Administration Lorazepam Confirm 07/29/21 02:04 Lorazepam 2 Mg/1 Ml 2 Mg Vial Administered 07/29/21 02:05 Dose 2 mg .ROUTE .STK-MED ONE Ondansetron HCl 4 mg 07/28/21 23:58 07/29/21 00:19 Ondansetron Hcl 4 Mg/2 Ml Vial IV 07/28/21 23:59 4 mg STAT ONE Administration Ondansetron HCl Confirm 07/29/21 00:19 Ondansetron Hcl 4 Mg/2 Ml Vial Administered 07/29/21 00:20 Dose 4 mg .ROUTE .STK-MED ONE Ondansetron HCl 4 mg 07/29/21 01:13 07/29/21 01:36 Ondansetron Hcl 4 Mg/2 Ml Vial IV 07/29/21 01:14 4 mg STAT ONE Administration Ondansetron HCl Confirm 07/29/21 01:33 Ondansetron Hcl 4 Mg/2 Ml Vial Administered 07/29/21 01:34 Dose 4 mg .ROUTE .STK-MED ONE Pantoprazole Sodium 40 mg 07/29/21 01:13 07/29/21 01:36 Pantoprazole 40 Mg Vial IV 07/29/21 01:14 40 mg STAT ONE Administration Pantoprazole Sodium Confirm 07/29/21 01:33 Pantoprazole 40 Mg Vial Administered 07/29/21 01:34 Dose 40 mg IV .STK-MED ONE Lab/Rad Data: Laboratory Result Diagrams 07/28/21 00:33 07/28/21 00:33 Laboratory Results 07/29/21 07/29/21 07/29/21 Range/Units 01:54 01:54 00:28 WBC (4.0-10.5) K/mm3 RBC (4.1-5.4) M/mm3 Hgb (12.0-16.0) gm/dl Hct (35-47) % MCV (78-100) fl MCH (26-32) pg MCHC (32-36) g/dl RDW (11.5-14.0) % Plt Count (150-450) K/mm3 MPV (7.5-11.0) fl Segmented Neutrophils (36.0-66.0) % Lymphocytes (Manual) (24-44) % Monocytes (Manual) (0.0-12.0) % Platelet Estimate (NORMAL) RBC Morphology Sodium (137-145) mmol/L Potassium (3.5-5.1) mmol/L Chloride (98-107) mmol/L Carbon Dioxide (22-30) mmol/L Anion Gap (5-15) MEQ/L BUN (7-17) mg/dL Creatinine (0.52-1.04) mg/dL Estimated GFR ML/MIN Glucose (74-106) mg/dL Lactic Acid (0.4-2.0) Calcium (8.4-10.2) mg/dL Total Bilirubin (0.2-1.3) mg/dL AST (14-36) U/L ALT (0-35) U/L Alkaline Phosphatase (38-126) U/L Ammonia (9-30) umol/L Serum Total Protein (6.3-8.2) g/dL Albumin (3.5-5.0) g/dL Thyroxine (T4) (5.53-10.96) ug/dL TSH 3rd Generation (0.47-4.68) mIU/L Urine Color YELLOW (YELLOW) Urine Appearance SLIGHTLY CLOUDY (CLEAR) Urine pH 5.0 (5-6) Ur Specific Stanton 1.023 (1.005-1.025) Urine Protein 100 (Negative) Urine Ketones MODERATE (NEGATIVE) Urine Blood SMALL (0-5) Fady/ul Urine Nitrite NEGATIVE (NEGATIVE) Urine Bilirubin NEGATIVE (NEGATIVE) Urine Urobilinogen NEGATIVE (0-1) mg/dL Ur Leukocyte Esterase NEGATIVE (NEGATIVE) Urine WBC (Auto) NONE (0-5) /HPF Urine RBC (Auto) 3-5 (0-2) /HPF U Hyaline Cast (Auto) 11-25 (0-2) /LPF U Epithel Cells (Auto) NONE (FEW) /HPF Urine Bacteria (Auto) NONE (NEGATIVE) /HPF Urine Mucus (Auto) SLIGHT (NEGATIVE) /HPF Urine Culture Reflexed ORDERED SEPARATELY (NO) Urine Sodium 120 H (30-90) mmol/L Urine Potassium 106.2 mmol/L Urine Glucose >=500 (NEGATIVE) mg/dL Urine Opiates Level (NEGATIVE) Ur Methadone (NEGATIVE) Urine Barbiturates (NEGATIVE) Ur Phencyclidine (PCP) (NEGATIVE) Urine Amphetamine (NEGATIVE) U Benzodiazepine Level (NEGATIVE) Urine Cocaine (NEGATIVE) Urine Marijuana (THC) (NEGATIVE) Ethyl Alcohol (0-10) mg/dL Monoscreen (Negative) Influenza Type A Ag (NEGATIVE) Influenza Type B Ag (NEGATIVE) 07/29/21 07/28/21 07/28/21 Range/Units 00:14 23:27 00:33 WBC (4.0-10.5) K/mm3 RBC (4.1-5.4) M/mm3 Hgb (12.0-16.0) gm/dl Hct (35-47) % MCV (78-100) fl MCH (26-32) pg MCHC (32-36) g/dl RDW (11.5-14.0) % Plt Count (150-450) K/mm3 MPV (7.5-11.0) fl Segmented Neutrophils (36.0-66.0) % Lymphocytes (Manual) (24-44) % Monocytes (Manual) (0.0-12.0) % Platelet Estimate (NORMAL) RBC Morphology Sodium (137-145) mmol/L Potassium (3.5-5.1) mmol/L Chloride (98-107) mmol/L Carbon Dioxide (22-30) mmol/L Anion Gap (5-15) MEQ/L BUN (7-17) mg/dL Creatinine (0.52-1.04) mg/dL Estimated GFR ML/MIN Glucose (74-106) mg/dL Lactic Acid 9.3 H (0.4-2.0) Calcium (8.4-10.2) mg/dL Total Bilirubin (0.2-1.3) mg/dL AST (14-36) U/L ALT (0-35) U/L Alkaline Phosphatase (38-126) U/L Ammonia (9-30) umol/L Serum Total Protein (6.3-8.2) g/dL Albumin (3.5-5.0) g/dL Thyroxine (T4) 15.5 H (5.53-10.96) ug/dL TSH 3rd Generation < 0.015 L (0.47-4.68) mIU/L Urine Color (YELLOW) Urine Appearance (CLEAR) Urine pH (5-6) Ur Specific Stanton (1.005-1.025) Urine Protein (Negative) Urine Ketones (NEGATIVE) Urine Blood (0-5) Fady/ul Urine Nitrite (NEGATIVE) Urine Bilirubin (NEGATIVE) Urine Urobilinogen (0-1) mg/dL Ur Leukocyte Esterase (NEGATIVE) Urine WBC (Auto) (0-5) /HPF Urine RBC (Auto) (0-2) /HPF U Hyaline Cast (Auto) (0-2) /LPF U Epithel Cells (Auto) (FEW) /HPF Urine Bacteria (Auto) (NEGATIVE) /HPF Urine Mucus (Auto) (NEGATIVE) /HPF Urine Culture Reflexed (NO) Urine Sodium (30-90) mmol/L Urine Potassium mmol/L Urine Glucose (NEGATIVE) mg/dL Urine Opiates Level (NEGATIVE) Ur Methadone (NEGATIVE) Urine Barbiturates (NEGATIVE) Ur Phencyclidine (PCP) (NEGATIVE) Urine Amphetamine (NEGATIVE) U Benzodiazepine Level (NEGATIVE) Urine Cocaine (NEGATIVE) Urine Marijuana (THC) (NEGATIVE) Ethyl Alcohol (0-10) mg/dL Monoscreen (Negative) Influenza Type A Ag NEGATIVE (NEGATIVE) Influenza Type B Ag NEGATIVE (NEGATIVE) 07/28/21 07/28/21 07/28/21 Range/Units 00:33 00:33 00:33 WBC (4.0-10.5) K/mm3 RBC (4.1-5.4) M/mm3 Hgb (12.0-16.0) gm/dl Hct (35-47) % MCV (78-100) fl MCH (26-32) pg MCHC (32-36) g/dl RDW (11.5-14.0) % Plt Count (150-450) K/mm3 MPV (7.5-11.0) fl Segmented Neutrophils (36.0-66.0) % Lymphocytes (Manual) (24-44) % Monocytes (Manual) (0.0-12.0) % Platelet Estimate (NORMAL) RBC Morphology Sodium 156 H* (137-145) mmol/L Potassium 3.5 (3.5-5.1) mmol/L Chloride 100 (98-107) mmol/L Carbon Dioxide 19 L (22-30) mmol/L Anion Gap 40.0 H (5-15) MEQ/L BUN 15 (7-17) mg/dL Creatinine 0.69 (0.52-1.04) mg/dL Estimated GFR > 60.0 ML/MIN Glucose 241 H (74-106) mg/dL Lactic Acid (0.4-2.0) Calcium 9.6 (8.4-10.2) mg/dL Total Bilirubin 0.50 (0.2-1.3) mg/dL AST 50 H (14-36) U/L ALT 45 H (0-35) U/L Alkaline Phosphatase 136 H (38-126) U/L Ammonia < 9 L (9-30) umol/L Serum Total Protein 7.6 (6.3-8.2) g/dL Albumin 4.7 (3.5-5.0) g/dL Thyroxine (T4) (5.53-10.96) ug/dL TSH 3rd Generation (0.47-4.68) mIU/L Urine Color (YELLOW) Urine Appearance (CLEAR) Urine pH (5-6) Ur Specific Stanton (1.005-1.025) Urine Protein (Negative) Urine Ketones (NEGATIVE) Urine Blood (0-5) Fady/ul Urine Nitrite (NEGATIVE) Urine Bilirubin (NEGATIVE) Urine Urobilinogen (0-1) mg/dL Ur Leukocyte Esterase (NEGATIVE) Urine WBC (Auto) (0-5) /HPF Urine RBC (Auto) (0-2) /HPF U Hyaline Cast (Auto) (0-2) /LPF U Epithel Cells (Auto) (FEW) /HPF Urine Bacteria (Auto) (NEGATIVE) /HPF Urine Mucus (Auto) (NEGATIVE) /HPF Urine Culture Reflexed (NO) Urine Sodium (30-90) mmol/L Urine Potassium mmol/L Urine Glucose (NEGATIVE) mg/dL Urine Opiates Level (NEGATIVE) Ur Methadone (NEGATIVE) Urine Barbiturates (NEGATIVE) Ur Phencyclidine (PCP) (NEGATIVE) Urine Amphetamine (NEGATIVE) U Benzodiazepine Level (NEGATIVE) Urine Cocaine (NEGATIVE) Urine Marijuana (THC) (NEGATIVE) Ethyl Alcohol < 10 (0-10) mg/dL Monoscreen NEGATIVE (Negative) Influenza Type A Ag (NEGATIVE) Influenza Type B Ag (NEGATIVE) 07/28/21 07/28/21 Range/Units 00:33 00:28 WBC 28.2 H* (4.0-10.5) K/mm3 RBC 4.87 (4.1-5.4) M/mm3 Hgb 15.3 (12.0-16.0) gm/dl Hct 44.5 (35-47) % MCV 91.4 (78-100) fl MCH 31.4 (26-32) pg MCHC 34.4 (32-36) g/dl RDW 13.1 (11.5-14.0) % Plt Count 316 (150-450) K/mm3 MPV 10.4 (7.5-11.0) fl Segmented Neutrophils 83 H (36.0-66.0) % Lymphocytes (Manual) 11 L (24-44) % Monocytes (Manual) 6 (0.0-12.0) % Platelet Estimate NORMAL (NORMAL) RBC Morphology NORMAL Sodium (137-145) mmol/L Potassium (3.5-5.1) mmol/L Chloride (98-107) mmol/L Carbon Dioxide (22-30) mmol/L Anion Gap (5-15) MEQ/L BUN (7-17) mg/dL Creatinine (0.52-1.04) mg/dL Estimated GFR ML/MIN Glucose (74-106) mg/dL Lactic Acid (0.4-2.0) Calcium (8.4-10.2) mg/dL Total Bilirubin (0.2-1.3) mg/dL AST (14-36) U/L ALT (0-35) U/L Alkaline Phosphatase (38-126) U/L Ammonia (9-30) umol/L Serum Total Protein (6.3-8.2) g/dL Albumin (3.5-5.0) g/dL Thyroxine (T4) (5.53-10.96) ug/dL TSH 3rd Generation (0.47-4.68) mIU/L Urine Color (YELLOW) Urine Appearance (CLEAR) Urine pH (5-6) Ur Specific Stanton (1.005-1.025) Urine Protein (Negative) Urine Ketones (NEGATIVE) Urine Blood (0-5) Fady/ul Urine Nitrite (NEGATIVE) Urine Bilirubin (NEGATIVE) Urine Urobilinogen (0-1) mg/dL Ur Leukocyte Esterase (NEGATIVE) Urine WBC (Auto) (0-5) /HPF Urine RBC (Auto) (0-2) /HPF U Hyaline Cast (Auto) (0-2) /LPF U Epithel Cells (Auto) (FEW) /HPF Urine Bacteria (Auto) (NEGATIVE) /HPF Urine Mucus (Auto) (NEGATIVE) /HPF Urine Culture Reflexed (NO) Urine Sodium (30-90) mmol/L Urine Potassium mmol/L Urine Glucose (NEGATIVE) mg/dL Urine Opiates Level POSITIVE (NEGATIVE) Ur Methadone NEGATIVE (NEGATIVE) Urine Barbiturates NEGATIVE (NEGATIVE) Ur Phencyclidine (PCP) NEGATIVE (NEGATIVE) Urine Amphetamine NEGATIVE (NEGATIVE) U Benzodiazepine Level NEGATIVE (NEGATIVE) Urine Cocaine NEGATIVE (NEGATIVE) Urine Marijuana (THC) NEGATIVE (NEGATIVE) Ethyl Alcohol (0-10) mg/dL Monoscreen (Negative) Influenza Type A Ag (NEGATIVE) Influenza Type B Ag (NEGATIVE) - Progress Progress: improved (Mild improvement in confusion but still confused) Progress Note: 07/28/21 23:53 After the patient's initial assessment, the son Dallas called to get an update on his mother. She had only been here approximately 15 minutes but he was able to provide a little more information. He stated approximately 9:30 PM prior to arrival, the patient called him just to check on his mom like he usually does and he said she did not sound well. He said that she sounded weak. He asked his mother how she was feeling and his mother told him she does not feel well. She also said that her stomach was hurting. Additionally, he told me that the granddaughter witnessed the patient seizing briefly prior to EMS arrival. Since the arrival of the EMS, there is no mention of seizing activity. However, patient did arrive to the emergency department with urine soiled undergarments. He also stated that his brother Scooter has medical power of contracts attorney. Dallas's phone number is [phone] 07/28/21 23:58 CAT scan of the head without contrast shows motion artifact but there is no definite acute intracranial abnormality 07/29/21 01:23 CAT scan of the abdomen and pelvis without contrast shows some motion artifact without definite acute intra-abdominal or intrapelvic abnormality Discussed with Dr.: Argueta Counseled pt/family regarding: lab results, diagnosis, rad results - Departure Clinical Impression: Sepsis, Leukocytosis, Fever of unknown origin, Hypernatremia, Confusion, Hyperthyroidism Condition: Serious Critical Care Time: Yes Critical Care Time(excluding separately billable procedures): Critical 30-74 mins (60 minutes) Referrals: TESSY VEGAS [Primary Care Provider] - Follow up/PCP as directed
[2021-07-28] MEDS ORDERED: Sodium Chloride 0.9% 1000 ML 1,000 ML IV SCH (23:30)
[2021-07-28] MEDS ORDERED: Sodium Chloride 0.9% 1000 ML 1,000 ML ONE (23:44)
[2021-07-28] MEDS ORDERED: Ativan 2 MG/1 ML VIAL IV ONE (23:50)
[2021-07-28] MEDS ORDERED: Ativan 2 MG/1 ML VIAL ONE (23:50)
[2021-07-28] MEDS ORDERED: Zofran 4 MG/2 ML VIAL IV ONE (23:58)
[2021-07-29] MEDS: Zofran 4 MG/2 ML VIAL IV ONE ×2 (00:19→01:36)
[2021-07-29] MEDS ORDERED: Zofran 4 MG/2 ML VIAL ONE ×2 (00:19→01:33)
[2021-07-29 01:03] LABS: Appearance SLIGHTLY CLOUDY (CLEAR); Bilirubin NEGATIVE (NEGATIVE); Blood SMALL Ery/ul (0-5); Glucose >=500 mg/dL (NEGATIVE); Ketones MODERATE (NEGATIVE); Leukocyte Esterase NEGATIVE (NEGATIVE); Mucus SLIGHT /HPF (NEGATIVE); Nitrite NEGATIVE (NEGATIVE); Protein,Urine Dip 100 (Negative); Specific Gravity 1.023 (1.005-1.025); Urobilinogen NEGATIVE mg/dL (0-1)
[2021-07-29 01:08] LABS: INFLUENZA A NEGATIVE (NEGATIVE); INFLUENZA B NEGATIVE (NEGATIVE)
[2021-07-29] MEDS ORDERED: FLAGYL 500 MG IVPB 500 MG/100 ML BAG IV STA (01:09)
[2021-07-29] MEDS ORDERED: ROCEPHIN 1 Gm-D5w 50 ml Bag** 1 G/50 ML IVPB IV STA (01:09)
[2021-07-29] MEDS ORDERED: PROTONIX 40 MG IV IV ONE ×2 (01:13→01:33)
[2021-07-29] MEDS ORDERED: ROCEPHIN 1 Gm-D5w 50 ml Bag** 1 G/50 ML IVPB IV ONE (01:33)
[2021-07-29] MEDS ORDERED: FLAGYL 500 MG IVPB 500 MG/100 ML BAG IV ONE (01:33)
[2021-07-29] MEDS ORDERED: VANCOMYCIN 1 GRAM/200 ML BAG 1 GM/200 ML PIGGYBACK IV ONE ×2 (01:37→02:28)
[2021-07-29] MEDS ORDERED: TYLENOL 325 MG PO STA (01:55)
[2021-07-29] MEDS ORDERED: MOTRIN 600 MG PO STA (01:55)
[2021-07-29] MEDS ORDERED: TYLENOL 325 MG ONE (01:57)
[2021-07-29] MEDS ORDERED: MOTRIN 600 MG ONE (01:57)
[2021-07-29] MEDS ORDERED: Ativan 2 MG/1 ML VIAL IV ONE (02:02)
[2021-07-29] MEDS ORDERED: Ativan 2 MG/1 ML VIAL ONE (02:04)
[2021-07-29] MEDS ORDERED: solu-MEDROL 125 MG, Sterile H2O 10 ml 2 ML IV ONE ×2 (03:26)
[2021-07-29] MEDS ORDERED: LOPRESSOR 5 MG/5 ML INJECTION IV ONE ×2 (03:26→03:30)
[2021-07-29] MEDS ORDERED: solu-MEDROL ONE (03:30)
[2021-07-29] MEDS ORDERED: Sterile H2O 10 ml IJ ONE (03:30)
[2021-07-29 03:43] LABS: INFLUENZA A NEGATIVE (NEGATIVE); INFLUENZA B NEGATIVE (NEGATIVE); RESPIRATORY SYNCTIAL VIRUS NEGATIVE (Negative); SARS-CoV-2 Xpert Express NEGATIVE (NEGATIVE)
[2021-07-29] MEDS ORDERED: PHARMACY DOSING REQUIRED: VANCOMYCIN MC ONE (07:15)
--- NOTE | 2021-07-29 07:55 | PCM.HP ---
History of Present Illness - Chief Complaint Chief Complaint: Leukocytosis, hypernatremia, confusion, fever of unknown or igin, hypothyroi History of Present Illness: is a 70 year old female.who presents via EMS confused. The patients family called EMS because of this sudden onset of confusion approximately 25 minutes prior to their arrival. Patient does take sertraline, Ativan, hydrocodone and morphine. Family does not believe that she took too much of this but is a possibility. Patient arrives to the emergency department moving all her extremities but confused. Patient has a history of migraine headache, hypertension, COPD, and hypothyroidism. There is no known history of head trauma this evening. - Review of Systems Constitutional: Fever, Lethargy, Malaise, Weakness, No Chills Eyes: No Symptoms Ears, Nose, & Throat: No Symptoms Respiratory: No Cough, No Short Of Breath Cardiac: No Chest Pain, No Edema, No Syncope Abdominal/Gastrointestinal: No Abdominal Pain, No Nausea, No Vomiting, No Diarrhea Genitourinary Symptoms: No Dysuria Musculoskeletal: Myalgias, No Back Pain, No Neck Pain Skin: No Rash Neurological: Dizziness, Headache, Irritability, Lethargy, No Focal Weakness, No Sensory Changes Psychological: No Symptoms Endocrine: No Symptoms Hematologic/Lymphatic: No Symptoms Immunological/Allergic: No Symptoms Medications & Allergies Home Medications: Home Medication List Hydrocodone/Acetaminophen [Hydrocodon-Acetaminophn 10-325] 1 ea PO QID PRN PRN 01/24/17 [History Confirmed 07/29/21] Levothyroxine Sodium 75 Mcg [Synthroid 75 Mcg] 175 mcg PO DAILY 01/24/17 [History Confirmed 07/29/21] Albuterol Sulfate 4 mg PO DAILY 07/29/21 [History Confirmed 07/29/21] Amitriptyline HCl 25 mg [Elavil 25 mg] 25 mg PO HS 07/29/21 [History Confirmed 07/29/21] Atorvastatin Calcium [Lipitor] 40 mg PO DAILY 07/29/21 [History Confirmed 07/29/21] Calcium Citrate/Vitamin D3 [Citracal-Vit D3 200 mg-250 Tab] 2 each PO TID 07/29/21 [History Confirmed 07/29/21] Cariprazine HCl [Vraylar] 3 mg PO QHS 07/29/21 [History Confirmed 07/29/21] Furosemide [Lasix] 20 mg PO DAILY 07/29/21 [History Confirmed 07/29/21] Gabapentin 300 mg [Neurontin 300 mg] 600 mg PO TID 07/29/21 [History Confirmed 07/29/21] Iron Polysaccharides Complex [Ferrex 150] 150 mg PO DAILY 07/29/21 [History Confirmed 07/29/21] Lorazepam 1 mg [Ativan 1 MG] 1 mg PO TID 07/29/21 [History Confirmed 07/29/21] Metoprolol Succinate [Toprol Xl] 25 mg PO DAILY 07/29/21 [History Confirmed 07/29/21] Morphine Sulfate [Morphine Sulfate ER] 15 mg PO BID 07/29/21 [History Confirmed 07/29/21] Multivitamin with Minerals [One Daily Complete] 1 each PO DAILY 07/29/21 [History Confirmed 07/29/21] Oxybutynin Chloride [Oxybutynin Chloride ER] 5 mg PO DAILY 07/29/21 [History Confirmed 07/29/21] Potassium Gluconate [Potassium] 99 mg PO DAILY 07/29/21 [History Confirmed 07/29/21] Sertraline HCl [Zoloft] 100 mg PO LUNCH 07/29/21 [History Confirmed 07/29/21] Sotalol HCl [Sotalol] 160 mg PO BID 07/29/21 [History Confirmed 07/29/21] Spironolactone [Aldactone] 12.5 mg PO DAILY 07/29/21 [History Confirmed 07/29/21] lisinopriL [Lisinopril] 2.5 mg PO DAILY 07/29/21 [History Confirmed 07/29/21] Allergies/Adverse Reactions: Allergies Allergy/AdvReac Type Severity Reaction Status Date / Time ciprofloxacin [From Cipro] Allergy Severe Swelling Verified 07/29/21 05:26 diphenhydramine HCl Allergy Intermediate swelling, Verified 07/29/21 05:26 [From Benadryl] hives, seizures pentazocine lactate Allergy Intermediate swelling, Verified 07/29/21 05:26 [From Talwin] hives Penicillins Allergy swelling,hi Verified 07/29/21 05:26 ves - Past Medical History Past Medical History: Yes Neurological History: Migraines ENT History: Cataracts Cardiac History: Hypertension Respiratory History: COPD Endocrine Medical History: Hypothyroidism Musculoskelatal History: Other GI Medical History: Diverticulosis History: No Pertinent History Pyscho-Social History: No Pertinent History Reproductive Disorders: No Pertinent History Comment: mitral valve prolapse, R AKA. *Patient disoriented and poor historian. All medical history obtained from previous documentation. - Female History Are you now?: No - Past Surgical History Past Surgical History: Yes Neuro Surgical History: No Pertinent History Cardiac History: Cardiac Catheterization Respiratory Surgery: No Pertinent History GI Surgical History: Cholecystectomy Genitourinary Surgical Hx: No Pertinent History Musculskeletal Surgical Hx: Amputation, Joint Replacement, Orthopedic Surgery Female Surgical History: Hysterectomy, Other Other Surgical History: bilateral cataracts, bladder surgery, intestinal and stomach surgery, hiatal hernia repair, back surgery. right hip replacement, right knee replacement, I&D of rt knee. Patient disoriented and poor historian. All medical history obtained from previous documentation. - Social History Smoking Status: Former smoker How long have you smoked: 40 Exposure to second hand smoke: No Alcohol: None Drug Use: none - Physical Exam Vital Signs: Vital Signs - 24 hr Temp Pulse Resp BP Pulse Ox 07/29/21 07:12 95 07/29/21 07:02 101.1 F 98 H 14 110/83 95 07/29/21 05:45 102 H 20 95 07/29/21 04:45 101.3 F 104 H 21 141/95 80 L 07/29/21 04:06 101.3 F 104 H 21 141/95 95 07/29/21 03:04 101.3 F 132 H 146/85 95 07/29/21 02:00 101.3 F 128 H 176/90 95 07/29/21 01:00 101.3 F 125 H 13 185/85 94 L 07/28/21 23:28 100.3 F 117 H 133/67 97 General Appearance: no apparent distress, alert Neurologic Exam: alert, disoriented, confusion, agitation, No motor deficits Eye Exam: PERRL/EOMI, eyes nml inspection Ears, Nose, Throat Exam: normal ENT inspection, TMs normal, pharynx normal, moist mucous membranes Neck Exam: normal inspection, non-tender, supple, full range of motion Respiratory Exam: normal breath sounds, lungs clear, No respiratory distress Cardiovascular Exam: regular rate/rhythm, normal heart sounds, normal peripheral pulses Gastrointestinal/Abdomen Exam: soft, normal bowel sounds, No tenderness, No mass Back Exam: normal inspection, normal range of motion, No CVA tenderness, No vertebral tenderness Extremity Exam: normal inspection, normal range of motion, pelvis stable Skin Exam: normal color, warm, dry, No rash Lymphatic Exam: No adenopathy Results - Labs Lab/Micro Results: Lab Results-Last 24 Hours 07/28/21 07/28/21 07/28/21 Range/Units 00:28 00:33 00:33 WBC 28.2 H* (4.0-10.5) K/mm3 RBC 4.87 (4.1-5.4) M/mm3 Hgb 15.3 (12.0-16.0) gm/dl Hct 44.5 (35-47) % MCV 91.4 (78-100) fl MCH 31.4 (26-32) pg MCHC 34.4 (32-36) g/dl RDW 13.1 (11.5-14.0) % Plt Count 316 (150-450) K/mm3 MPV 10.4 (7.5-11.0) fl Segmented Neutrophils 83 H (36.0-66.0) % Lymphocytes (Manual) 11 L (24-44) % Monocytes (Manual) 6 (0.0-12.0) % Platelet Estimate NORMAL (NORMAL) RBC Morphology NORMAL Sodium 156 H* (137-145) mmol/L Potassium 3.5 (3.5-5.1) mmol/L Chloride 100 (98-107) mmol/L Carbon Dioxide 19 L (22-30) mmol/L Anion Gap 40.0 H (5-15) MEQ/L BUN 15 (7-17) mg/dL Creatinine 0.69 (0.52-1.04) mg/dL Estimated GFR > 60.0 ML/MIN Glucose 241 H (74-106) mg/dL Lactic Acid (0.4-2.0) Calcium 9.6 (8.4-10.2) mg/dL Total Bilirubin 0.50 (0.2-1.3) mg/dL AST 50 H (14-36) U/L ALT 45 H (0-35) U/L Alkaline Phosphatase 136 H (38-126) U/L Ammonia (9-30) umol/L Serum Total Protein 7.6 (6.3-8.2) g/dL Albumin 4.7 (3.5-5.0) g/dL Prealbumin (17.6-36.0) mg/dL Thyroxine (T4) (5.53-10.96) ug/dL TSH 3rd Generation (0.47-4.68) mIU/L Urine Color (YELLOW) Urine Appearance (CLEAR) Urine pH (5-6) Ur Specific [place] (1.005-1.025) Urine Protein (Negative) Urine Ketones (NEGATIVE) Urine Blood (0-5) Fady/ul Urine Nitrite (NEGATIVE) Urine Bilirubin (NEGATIVE) Urine Urobilinogen (0-1) mg/dL Ur Leukocyte Esterase (NEGATIVE) Urine WBC (Auto) (0-5) /HPF Urine RBC (Auto) (0-2) /HPF U Hyaline Cast (Auto) (0-2) /LPF U Epithel Cells (Auto) (FEW) /HPF Urine Bacteria (Auto) (NEGATIVE) /HPF Urine Mucus (Auto) (NEGATIVE) /HPF Urine Culture Reflexed (NO) Urine Sodium (30-90) mmol/L Urine Potassium mmol/L Urine Glucose (NEGATIVE) mg/dL Urine Opiates Level POSITIVE (NEGATIVE) Ur Methadone NEGATIVE (NEGATIVE) Urine Barbiturates NEGATIVE (NEGATIVE) Ur Phencyclidine (PCP) NEGATIVE (NEGATIVE) Urine Amphetamine NEGATIVE (NEGATIVE) U Benzodiazepine Level NEGATIVE (NEGATIVE) Urine Cocaine NEGATIVE (NEGATIVE) Urine Marijuana (THC) NEGATIVE (NEGATIVE) Ethyl Alcohol < 10 (0-10) mg/dL Monoscreen (Negative) Influenza Type A Ag (NEGATIVE) Influenza Type B Ag (NEGATIVE) RSV (PCR) (Negative) SARS-CoV-2 (PCR) (NEGATIVE) 07/28/21 07/28/21 07/28/21 Range/Units 00:33 00:33 00:33 WBC (4.0-10.5) K/mm3 RBC (4.1-5.4) M/mm3 Hgb (12.0-16.0) gm/dl Hct (35-47) % MCV (78-100) fl MCH (26-32) pg MCHC (32-36) g/dl RDW (11.5-14.0) % Plt Count (150-450) K/mm3 MPV (7.5-11.0) fl Segmented Neutrophils (36.0-66.0) % Lymphocytes (Manual) (24-44) % Monocytes (Manual) (0.0-12.0) % Platelet Estimate (NORMAL) RBC Morphology Sodium (137-145) mmol/L Potassium (3.5-5.1) mmol/L Chloride (98-107) mmol/L Carbon Dioxide (22-30) mmol/L Anion Gap (5-15) MEQ/L BUN (7-17) mg/dL Creatinine (0.52-1.04) mg/dL Estimated GFR ML/MIN Glucose (74-106) mg/dL Lactic Acid (0.4-2.0) Calcium (8.4-10.2) mg/dL Total Bilirubin (0.2-1.3) mg/dL AST (14-36) U/L ALT (0-35) U/L Alkaline Phosphatase (38-126) U/L Ammonia < 9 L (9-30) umol/L Serum Total Protein (6.3-8.2) g/dL Albumin (3.5-5.0) g/dL Prealbumin (17.6-36.0) mg/dL Thyroxine (T4) 15.5 H (5.53-10.96) ug/dL TSH 3rd Generation < 0.015 L (0.47-4.68) mIU/L Urine Color (YELLOW) Urine Appearance (CLEAR) Urine pH (5-6) Ur Specific [place] (1.005-1.025) Urine Protein (Negative) Urine Ketones (NEGATIVE) Urine Blood (0-5) Fady/ul Urine Nitrite (NEGATIVE) Urine Bilirubin (NEGATIVE) Urine Urobilinogen (0-1) mg/dL Ur Leukocyte Esterase (NEGATIVE) Urine WBC (Auto) (0-5) /HPF Urine RBC (Auto) (0-2) /HPF U Hyaline Cast (Auto) (0-2) /LPF U Epithel Cells (Auto) (FEW) /HPF Urine Bacteria (Auto) (NEGATIVE) /HPF Urine Mucus (Auto) (NEGATIVE) /HPF Urine Culture Reflexed (NO) Urine Sodium (30-90) mmol/L Urine Potassium mmol/L Urine Glucose (NEGATIVE) mg/dL Urine Opiates Level (NEGATIVE) Ur Methadone (NEGATIVE) Urine Barbiturates (NEGATIVE) Ur Phencyclidine (PCP) (NEGATIVE) Urine Amphetamine (NEGATIVE) U Benzodiazepine Level (NEGATIVE) Urine Cocaine (NEGATIVE) Urine Marijuana (THC) (NEGATIVE) Ethyl Alcohol (0-10) mg/dL Monoscreen NEGATIVE (Negative) Influenza Type A Ag (NEGATIVE) Influenza Type B Ag (NEGATIVE) RSV (PCR) (Negative) SARS-CoV-2 (PCR) (NEGATIVE) 07/28/21 07/29/21 07/29/21 Range/Units 23:27 00:01 00:14 WBC (4.0-10.5) K/mm3 RBC (4.1-5.4) M/mm3 Hgb (12.0-16.0) gm/dl Hct (35-47) % MCV (78-100) fl MCH (26-32) pg MCHC (32-36) g/dl RDW (11.5-14.0) % Plt Count (150-450) K/mm3 MPV (7.5-11.0) fl Segmented Neutrophils (36.0-66.0) % Lymphocytes (Manual) (24-44) % Monocytes (Manual) (0.0-12.0) % Platelet Estimate (NORMAL) RBC Morphology Sodium (137-145) mmol/L Potassium (3.5-5.1) mmol/L Chloride (98-107) mmol/L Carbon Dioxide (22-30) mmol/L Anion Gap (5-15) MEQ/L BUN (7-17) mg/dL Creatinine (0.52-1.04) mg/dL Estimated GFR ML/MIN Glucose (74-106) mg/dL Lactic Acid 9.3 H (0.4-2.0) Calcium (8.4-10.2) mg/dL Total Bilirubin (0.2-1.3) mg/dL AST (14-36) U/L ALT (0-35) U/L Alkaline Phosphatase (38-126) U/L Ammonia (9-30) umol/L Serum Total Protein (6.3-8.2) g/dL Albumin (3.5-5.0) g/dL Prealbumin 23.26 (17.6-36.0) mg/dL Thyroxine (T4) (5.53-10.96) ug/dL TSH 3rd Generation (0.47-4.68) mIU/L Urine Color (YELLOW) Urine Appearance (CLEAR) Urine pH (5-6) Ur Specific [place] (1.005-1.025) Urine Protein (Negative) Urine Ketones (NEGATIVE) Urine Blood (0-5) Fady/ul Urine Nitrite (NEGATIVE) Urine Bilirubin (NEGATIVE) Urine Urobilinogen (0-1) mg/dL Ur Leukocyte Esterase (NEGATIVE) Urine WBC (Auto) (0-5) /HPF Urine RBC (Auto) (0-2) /HPF U Hyaline Cast (Auto) (0-2) /LPF U Epithel Cells (Auto) (FEW) /HPF Urine Bacteria (Auto) (NEGATIVE) /HPF Urine Mucus (Auto) (NEGATIVE) /HPF Urine Culture Reflexed (NO) Urine Sodium (30-90) mmol/L Urine Potassium mmol/L Urine Glucose (NEGATIVE) mg/dL Urine Opiates Level (NEGATIVE) Ur Methadone (NEGATIVE) Urine Barbiturates (NEGATIVE) Ur Phencyclidine (PCP) (NEGATIVE) Urine Amphetamine (NEGATIVE) U Benzodiazepine Level (NEGATIVE) Urine Cocaine (NEGATIVE) Urine Marijuana (THC) (NEGATIVE) Ethyl Alcohol (0-10) mg/dL Monoscreen (Negative) Influenza Type A Ag NEGATIVE (NEGATIVE) Influenza Type B Ag NEGATIVE (NEGATIVE) RSV (PCR) (Negative) SARS-CoV-2 (PCR) (NEGATIVE) 07/29/21 07/29/21 07/29/21 Range/Units 00:28 01:54 01:54 WBC (4.0-10.5) K/mm3 RBC (4.1-5.4) M/mm3 Hgb (12.0-16.0) gm/dl Hct (35-47) % MCV (78-100) fl MCH (26-32) pg MCHC (32-36) g/dl RDW (11.5-14.0) % Plt Count (150-450) K/mm3 MPV (7.5-11.0) fl Segmented Neutrophils (36.0-66.0) % Lymphocytes (Manual) (24-44) % Monocytes (Manual) (0.0-12.0) % Platelet Estimate (NORMAL) RBC Morphology Sodium (137-145) mmol/L Potassium (3.5-5.1) mmol/L Chloride (98-107) mmol/L Carbon Dioxide (22-30) mmol/L Anion Gap (5-15) MEQ/L BUN (7-17) mg/dL Creatinine (0.52-1.04) mg/dL Estimated GFR ML/MIN Glucose (74-106) mg/dL Lactic Acid (0.4-2.0) Calcium (8.4-10.2) mg/dL Total Bilirubin (0.2-1.3) mg/dL AST (14-36) U/L ALT (0-35) U/L Alkaline Phosphatase (38-126) U/L Ammonia (9-30) umol/L Serum Total Protein (6.3-8.2) g/dL Albumin (3.5-5.0) g/dL Prealbumin (17.6-36.0) mg/dL Thyroxine (T4) (5.53-10.96) ug/dL TSH 3rd Generation (0.47-4.68) mIU/L Urine Color YELLOW (YELLOW) Urine Appearance SLIGHTLY CLOUDY (CLEAR) Urine pH 5.0 (5-6) Ur Specific [place] 1.023 (1.005-1.025) Urine Protein 100 (Negative) Urine Ketones MODERATE (NEGATIVE) Urine Blood SMALL (0-5) Fady/ul Urine Nitrite NEGATIVE (NEGATIVE) Urine Bilirubin NEGATIVE (NEGATIVE) Urine Urobilinogen NEGATIVE (0-1) mg/dL Ur Leukocyte Esterase NEGATIVE (NEGATIVE) Urine WBC (Auto) NONE (0-5) /HPF Urine RBC (Auto) 3-5 (0-2) /HPF U Hyaline Cast (Auto) 11-25 (0-2) /LPF U Epithel Cells (Auto) NONE (FEW) /HPF Urine Bacteria (Auto) NONE (NEGATIVE) /HPF Urine Mucus (Auto) SLIGHT (NEGATIVE) /HPF Urine Culture Reflexed ORDERED SEPARATELY (NO) Urine Sodium 120 H (30-90) mmol/L Urine Potassium 106.2 mmol/L Urine Glucose >=500 (NEGATIVE) mg/dL Urine Opiates Level (NEGATIVE) Ur Methadone (NEGATIVE) Urine Barbiturates (NEGATIVE) Ur Phencyclidine (PCP) (NEGATIVE) Urine Amphetamine (NEGATIVE) U Benzodiazepine Level (NEGATIVE) Urine Cocaine (NEGATIVE) Urine Marijuana (THC) (NEGATIVE) Ethyl Alcohol (0-10) mg/dL Monoscreen (Negative) Influenza Type A Ag (NEGATIVE) Influenza Type B Ag (NEGATIVE) RSV (PCR) (Negative) SARS-CoV-2 (PCR) (NEGATIVE) 07/29/21 07/29/21 Range/Units 02:18 03:02 WBC (4.0-10.5) K/mm3 RBC (4.1-5.4) M/mm3 Hgb (12.0-16.0) gm/dl Hct (35-47) % MCV (78-100) fl MCH (26-32) pg MCHC (32-36) g/dl RDW (11.5-14.0) % Plt Count (150-450) K/mm3 MPV (7.5-11.0) fl Segmented Neutrophils (36.0-66.0) % Lymphocytes (Manual) (24-44) % Monocytes (Manual) (0.0-12.0) % Platelet Estimate (NORMAL) RBC Morphology Sodium (137-145) mmol/L Potassium (3.5-5.1) mmol/L Chloride (98-107) mmol/L Carbon Dioxide (22-30) mmol/L Anion Gap (5-15) MEQ/L BUN (7-17) mg/dL Creatinine (0.52-1.04) mg/dL Estimated GFR ML/MIN Glucose (74-106) mg/dL Lactic Acid 3.6 H (0.4-2.0) Calcium (8.4-10.2) mg/dL Total Bilirubin (0.2-1.3) mg/dL AST (14-36) U/L ALT (0-35) U/L Alkaline Phosphatase (38-126) U/L Ammonia (9-30) umol/L Serum Total Protein (6.3-8.2) g/dL Albumin (3.5-5.0) g/dL Prealbumin (17.6-36.0) mg/dL Thyroxine (T4) (5.53-10.96) ug/dL TSH 3rd Generation (0.47-4.68) mIU/L Urine Color (YELLOW) Urine Appearance (CLEAR) Urine pH (5-6) Ur Specific [place] (1.005-1.025) Urine Protein (Negative) Urine Ketones (NEGATIVE) Urine Blood (0-5) Fady/ul Urine Nitrite (NEGATIVE) Urine Bilirubin (NEGATIVE) Urine Urobilinogen (0-1) mg/dL Ur Leukocyte Esterase (NEGATIVE) Urine WBC (Auto) (0-5) /HPF Urine RBC (Auto) (0-2) /HPF U Hyaline Cast (Auto) (0-2) /LPF U Epithel Cells (Auto) (FEW) /HPF Urine Bacteria (Auto) (NEGATIVE) /HPF Urine Mucus (Auto) (NEGATIVE) /HPF Urine Culture Reflexed (NO) Urine Sodium (30-90) mmol/L Urine Potassium mmol/L Urine Glucose (NEGATIVE) mg/dL Urine Opiates Level (NEGATIVE) Ur Methadone (NEGATIVE) Urine Barbiturates (NEGATIVE) Ur Phencyclidine (PCP) (NEGATIVE) Urine Amphetamine (NEGATIVE) U Benzodiazepine Level (NEGATIVE) Urine Cocaine (NEGATIVE) Urine Marijuana (THC) (NEGATIVE) Ethyl Alcohol (0-10) mg/dL Monoscreen (Negative) Influenza Type A Ag NEGATIVE (NEGATIVE) Influenza Type B Ag NEGATIVE (NEGATIVE) RSV (PCR) NEGATIVE (Negative) SARS-CoV-2 (PCR) NEGATIVE (NEGATIVE) - Radiology Impressions Radiology Exams & Impressions: Radiology Procedures Category Date Time Status ABDOMEN AND PELVIS W/0 CONTRAS [CT] Stat Exams 07/28/21 23:43 Taken CHEST 1 VIEW (PORTABLE) Stat Exams 07/28/21 00:11 Taken HEAD WITHOUT CONTRAST [CT] Stat Exams 07/28/21 23:10 Taken - Other Procedures and Tests Respiratory Therapy 07/29/21 05:16 Oxygen Nasal Cannula 4 lpm Assessment/Plan (1) Confusion Current Visit: Yes Status: Acute Assessment & Plan: Chief Complaint Diagnosis Leukocytosis, hypernatremia, confusion, fever of unknown origin, hypothyroi Allergies Allergy/AdvReac Type Severity Reaction Status Date / Time ciprofloxacin [From Cipro] Allergy Severe Swelling Verified 07/29/21 05:26 diphenhydramine HCl Allergy Intermediate swelling, Verified 07/29/21 05:26 [From Benadryl] hives, seizures pentazocine lactate Allergy Intermediate swelling, Verified 07/29/21 05:26 [From Talwin] hives Penicillins Allergy swelling,hi Verified 07/29/21 05:26 ves Vital Signs (Last 24 hours) Temp Pulse Resp BP Pulse Ox 07/29/21 07:12 95 07/29/21 07:02 101.1 F 98 H 14 110/83 95 07/29/21 05:45 102 H 20 95 07/29/21 04:45 101.3 F 104 H 21 141/95 80 L 07/29/21 04:06 101.3 F 104 H 21 141/95 95 07/29/21 03:04 101.3 F 132 H 146/85 95 07/29/21 02:00 101.3 F 128 H 176/90 95 07/29/21 01:00 101.3 F 125 H 13 185/85 94 L 07/28/21 23:28 100.3 F 117 H 133/67 97 Home Medications Medication Instructions Recorded Confirmed Last Taken Type Albuterol Sulfate 4 mg PO DAILY 07/29/21 07/29/21 Unknown History Amitriptyline HCl 25 mg [Elavil 25 mg PO HS 07/29/21 07/29/21 Unknown History 25 mg] Atorvastatin Calcium [Lipitor] 40 mg PO DAILY 07/29/21 07/29/21 Unknown History Calcium Citrate/Vitamin D3 2 each PO TID 07/29/21 07/29/21 Unknown History [Citracal-Vit D3 200 mg-250 Tab] Cariprazine HCl [Vraylar] 3 mg PO QHS 07/29/21 07/29/21 Unknown History Furosemide [Lasix] 20 mg PO DAILY 07/29/21 07/29/21 Unknown History Gabapentin 300 mg [Neurontin 600 mg PO TID 07/29/21 07/29/21 Unknown History 300 mg] Iron Polysaccharides Complex 150 mg PO DAILY 07/29/21 07/29/21 Unknown History [Ferrex 150] Lorazepam 1 mg [Ativan 1 MG] 1 mg PO TID 07/29/21 07/29/21 Unknown History Metoprolol Succinate [Toprol Xl] 25 mg PO DAILY 07/29/21 07/29/21 Unknown History Morphine Sulfate [Morphine Sulfate 15 mg PO BID 07/29/21 07/29/21 Unknown History ER] Multivitamin with Minerals [One 1 each PO DAILY 07/29/21 07/29/21 Unknown History Daily Complete] Oxybutynin Chloride [Oxybutynin 5 mg PO DAILY 07/29/21 07/29/21 Unknown History Chloride ER] Potassium Gluconate [Potassium] 99 mg PO DAILY 07/29/21 07/29/21 Unknown History Sertraline HCl [Zoloft] 100 mg PO LUNCH 07/29/21 07/29/21 Unknown History Sotalol HCl [Sotalol] 160 mg PO BID 07/29/21 07/29/21 Unknown History Spironolactone [Aldactone] 12.5 mg PO DAILY 07/29/21 07/29/21 Unknown History lisinopriL [Lisinopril] 2.5 mg PO DAILY 07/29/21 07/29/21 Unknown History Current Medications Generic Name Dose Route Start Last Admin Trade Name Red PRN Reason Stop Dose Admin Acetaminophen 650 mg 07/29/21 05:06 Acetaminophen 325 Mg Tablet PO 08/28/21 05:05 Q4H PRN PRN PAIN, FEVER, HEADACHE Sodium Chloride 1,000 mls @ 200 mls/hr 07/29/21 05:06 07/29/21 06:54 Sodium Chloride 0.45% 1000 Ml IV 08/28/21 05:05 200 mls/hr .Q5H ROXANN Administration Ceftriaxone Sodium/Dextrose 1 g in 50 mls @ 100 mls/hr 07/29/21 22:00 Rocephin 1 Gm-D5w 50 Ml Bag IV 08/01/21 21:59 Q24H22 ROXANN Vancomycin HCl 1 gm in 200 mls @ 133.333 mls/hr 07/29/21 12:00 Vancomycin 1 Gram/200 Ml Bag IV 08/28/21 11:59 Q12H ROXANN Lorazepam 1 mg 07/29/21 05:06 Lorazepam 2 Mg/1 Ml 2 Mg Vial IV 08/28/21 05:05 Q4H PRN PRN ANXIETY Ondansetron HCl 4 mg 07/29/21 05:06 Ondansetron Hcl 4 Mg/2 Ml Vial IV 08/28/21 05:05 Q6H PRN PRN NAUSEA/VOMITING Pantoprazole Sodium 40 mg 07/29/21 22:00 Pantoprazole 40 Mg Vial IV 08/28/21 21:59 Q24H22 ROXANN Discontinued Medications Generic Name Dose Route Start Last Admin Trade Name Red PRN Reason Stop Dose Admin Acetaminophen 650 mg 07/29/21 01:55 07/29/21 01:57 Acetaminophen 325 Mg Tablet PO 07/29/21 01:56 650 mg STAT STA Administration Acetaminophen Confirm 07/29/21 01:57 Acetaminophen 325 Mg Tablet Administered 07/29/21 01:58 Dose 650 mg .ROUTE .STK-MED ONE Methylprednisolone Sodium 0 mg 07/29/21 03:26 07/29/21 03:31 Succinate 125 mg/ Sterile IV 07/29/21 03:27 125 mg Water 2 ml STAT ONE Administration Sodium Chloride 1,000 mls @ 100 mls/hr 07/28/21 23:30 07/29/21 01:54 Sodium Chloride 0.9% 1000 Ml IV 08/27/21 23:29 Infused .Q10H ROXANN Infusion Ceftriaxone Sodium/Dextrose 1 g in 50 mls @ 100 mls/hr 07/29/21 01:09 07/29/21 02:55 Rocephin 1 Gm-D5w 50 Ml Bag IV 07/29/21 01:38 Infused STAT STA Infusion Metronidazole 500 mg in 100 mls @ 200 mls/hr 07/29/21 01:09 07/29/21 02:56 Flagyl 500 Mg Ivpb IV 07/29/21 01:38 Infused STAT STA Infusion Sodium Chloride 1,000 mls @ 200 mls/hr 07/29/21 02:00 07/29/21 01:39 Sodium Chloride 0.45% 1000 Ml IV 08/28/21 01:59 200 mls/hr .Q5H ROXANN Administration Ceftriaxone Sodium/Dextrose Confirm 07/29/21 01:33 Rocephin 1 Gm-D5w 50 Ml Bag Administered 07/29/21 01:34 Dose 1 g in 50 mls @ ud IV .STK-MED ONE Metronidazole Confirm 07/29/21 01:33 Flagyl 500 Mg Ivpb Administered 07/29/21 01:34 Dose 500 mg in 100 mls @ ud IV .STK-MED ONE Vancomycin HCl 1 gm in 200 mls @ 125 mls/hr 07/29/21 01:37 07/29/21 04:05 Vancomycin 1 Gram/200 Ml Bag IV 07/29/21 03:12 Infused STAT ONE Infusion Vancomycin HCl Confirm 07/29/21 02:28 Vancomycin 1 Gram/200 Ml Bag Administered 07/29/21 02:29 Dose 1 gm in 200 mls @ ud IV .STK-MED ONE Sodium Chloride Confirm 07/29/21 01:39 Sodium Chloride 0.45% 1000 Ml Administered 07/29/21 01:40 Dose 1,000 mls @ ud IV .STK-MED ONE Sodium Chloride Confirm 07/29/21 06:52 Sodium Chloride 0.45% 1000 Ml Administered 07/29/21 06:53 Dose 1,000 mls @ ud IV .STK-MED ONE Sodium Chloride Confirm 07/28/21 23:44 Sodium Chloride 0.9% 1000 Ml Administered 07/28/21 23:45 Dose 1,000 mls @ ud .ROUTE .STK-MED ONE Ibuprofen 600 mg 07/29/21 01:55 07/29/21 01:58 Ibuprofen 600 Mg Tablet PO 07/29/21 01:56 600 mg STAT STA Administration Ibuprofen Confirm 07/29/21 01:57 Ibuprofen 600 Mg Tablet Administered 07/29/21 01:58 Dose 600 mg .ROUTE .STK-MED ONE Lorazepam 1 mg 07/28/21 23:50 07/28/21 23:55 Lorazepam 2 Mg/1 Ml 2 Mg Vial IV 07/28/21 23:51 1 mg STAT ONE Administration Lorazepam Confirm 07/28/21 23:50 Lorazepam 2 Mg/1 Ml 2 Mg Vial Administered 07/28/21 23:51 Dose 2 mg .ROUTE .STK-MED ONE Lorazepam 1 mg 07/29/21 02:02 07/29/21 02:25 Lorazepam 2 Mg/1 Ml 2 Mg Vial IV 07/29/21 02:03 1 mg STAT ONE Administration Lorazepam Confirm 07/29/21 02:04 Lorazepam 2 Mg/1 Ml 2 Mg Vial Administered 07/29/21 02:05 Dose 2 mg .ROUTE .STK-MED ONE Methylprednisolone Sodium Succinate Confirm 07/29/21 03:30 Methylprednis Sod Succ 125 Mg/2 Ml Vial Administered 07/29/21 03:31 Dose 125 mg .ROUTE .STK-MED ONE Metoprolol Tartrate 5 mg 07/29/21 03:26 07/29/21 03:31 Metoprolol Tartrate 5 Mg/5 Ml Injection IV 07/29/21 03:27 5 mg STAT ONE Administration Metoprolol Tartrate Confirm 07/29/21 03:30 Metoprolol Tartrate 5 Mg/5 Ml Injection Administered 07/29/21 03:31 Dose 5 mg IV .STK-MED ONE Non-Formulary Medication 1 each 07/29/21 07:15 Pharmacy Dose Request: Vancomycin 1 Each MC 07/29/21 07:16 ONCE ONE Ondansetron HCl 4 mg 07/28/21 23:58 07/29/21 00:19 Ondansetron Hcl 4 Mg/2 Ml Vial IV 07/28/21 23:59 4 mg STAT ONE Administration Ondansetron HCl Confirm 07/29/21 00:19 Ondansetron Hcl 4 Mg/2 Ml Vial Administered 07/29/21 00:20 Dose 4 mg .ROUTE .STK-MED ONE Ondansetron HCl 4 mg 07/29/21 01:13 07/29/21 01:36 Ondansetron Hcl 4 Mg/2 Ml Vial IV 07/29/21 01:14 4 mg STAT ONE Administration Ondansetron HCl Confirm 07/29/21 01:33 Ondansetron Hcl 4 Mg/2 Ml Vial Administered 07/29/21 01:34 Dose 4 mg .ROUTE .STK-MED ONE Pantoprazole Sodium 40 mg 07/29/21 01:13 07/29/21 01:36 Pantoprazole 40 Mg Vial IV 07/29/21 01:14 40 mg STAT ONE Administration Pantoprazole Sodium Confirm 07/29/21 01:33 Pantoprazole 40 Mg Vial Administered 07/29/21 01:34 Dose 40 mg IV .STK-MED ONE Sterile Water Confirm 07/29/21 03:30 Water For Injection,Sterile 10 Ml Vial Administered 07/29/21 03:31 Dose 10 ml IJ .STK-MED ONE Intake & Output (Last 24 hours) 07/26/21 07/27/21 07/28/21 07/29/21 11:59 11:59 11:59 11:59 Intake Total 1141 Output Total 401 Balance 740 Weight 77.3 kg Microbiology Results (Last 24 hours) 07/29/21 00:00 Blood Blood Culture Gram Stain - Pending 07/29/21 00:00 Blood Blood Culture - Pending 07/28/21 00:28 Catherized Urine Culture - Pending 07/29/21 00:15 Blood Blood Culture Gram Stain - Pending 07/29/21 00:15 Blood Blood Culture - Pending Laboratory Results (Last 24 hours) 07/29/21 07/29/21 07/29/21 03:02 02:18 01:54 WBC RBC Hgb Hct MCV MCH MCHC RDW Plt Count MPV Segmented Neutrophils Lymphocytes (Manual) Monocytes (Manual) Platelet Estimate RBC Morphology Sodium Potassium Chloride Carbon Dioxide Anion Gap BUN Creatinine Estimated GFR Glucose Lactic Acid 3.6 H Calcium Total Bilirubin AST ALT Alkaline Phosphatase Ammonia Serum Total Protein Albumin Prealbumin Thyroxine (T4) TSH 3rd Generation Urine Color Urine Appearance Urine pH Ur Specific [place] Urine Protein Urine Ketones Urine Blood Urine Nitrite Urine Bilirubin Urine Urobilinogen Ur Leukocyte Esterase Urine WBC (Auto) Urine RBC (Auto) U Hyaline Cast (Auto) U Epithel Cells (Auto) Urine Bacteria (Auto) Urine Mucus (Auto) Urine Culture Reflexed Urine Sodium Urine Potassium 106.2 Urine Glucose Urine Opiates Level Ur Methadone Urine Barbiturates Ur Phencyclidine (PCP) Urine Amphetamine U Benzodiazepine Level Urine Cocaine Urine Marijuana (THC) Ethyl Alcohol Monoscreen Influenza Type A Ag NEGATIVE Influenza Type B Ag NEGATIVE RSV (PCR) NEGATIVE SARS-CoV-2 (PCR) NEGATIVE 07/29/21 07/29/21 07/29/21 01:54 00:28 00:14 WBC RBC Hgb Hct MCV MCH MCHC RDW Plt Count MPV Segmented Neutrophils Lymphocytes (Manual) Monocytes (Manual) Platelet Estimate RBC Morphology Sodium Potassium Chloride Carbon Dioxide Anion Gap BUN Creatinine Estimated GFR Glucose Lactic Acid 9.3 H Calcium Total Bilirubin AST ALT Alkaline Phosphatase Ammonia Serum Total Protein Albumin Prealbumin Thyroxine (T4) TSH 3rd Generation Urine Color YELLOW Urine Appearance SLIGHTLY CLOUDY Urine pH 5.0 Ur Specific [place] 1.023 Urine Protein 100 Urine Ketones MODERATE Urine Blood SMALL Urine Nitrite NEGATIVE Urine Bilirubin NEGATIVE Urine Urobilinogen NEGATIVE Ur Leukocyte Esterase NEGATIVE Urine WBC (Auto) NONE Urine RBC (Auto) 3-5 U Hyaline Cast (Auto) 11-25 U Epithel Cells (Auto) NONE Urine Bacteria (Auto) NONE Urine Mucus (Auto) SLIGHT Urine Culture Reflexed ORDERED SEPARATELY Urine Sodium 120 H Urine Potassium Urine Glucose >=500 Urine Opiates Level Ur Methadone Urine Barbiturates Ur Phencyclidine (PCP) Urine Amphetamine U Benzodiazepine Level Urine Cocaine Urine Marijuana (THC) Ethyl Alcohol Monoscreen Influenza Type A Ag Influenza Type B Ag RSV (PCR) SARS-CoV-2 (PCR) 07/29/21 07/28/21 07/28/21 00:01 23:27 00:33 WBC RBC Hgb Hct MCV MCH MCHC RDW Plt Count MPV Segmented Neutrophils Lymphocytes (Manual) Monocytes (Manual) Platelet Estimate RBC Morphology Sodium Potassium Chloride Carbon Dioxide Anion Gap BUN Creatinine Estimated GFR Glucose Lactic Acid Calcium Total Bilirubin AST ALT Alkaline Phosphatase Ammonia Serum Total Protein Albumin Prealbumin 23.26 Thyroxine (T4) 15.5 H TSH 3rd Generation < 0.015 L Urine Color Urine Appearance Urine pH Ur Specific [place] Urine Protein Urine Ketones Urine Blood Urine Nitrite Urine Bilirubin Urine Urobilinogen Ur Leukocyte Esterase Urine WBC (Auto) Urine RBC (Auto) U Hyaline Cast (Auto) U Epithel Cells (Auto) Urine Bacteria (Auto) Urine Mucus (Auto) Urine Culture Reflexed Urine Sodium Urine Potassium Urine Glucose Urine Opiates Level Ur Methadone Urine Barbiturates Ur Phencyclidine (PCP) Urine Amphetamine U Benzodiazepine Level Urine Cocaine Urine Marijuana (THC) Ethyl Alcohol Monoscreen Influenza Type A Ag NEGATIVE Influenza Type B Ag NEGATIVE RSV (PCR) SARS-CoV-2 (PCR) 07/28/21 07/28/21 07/28/21 00:33 00:33 00:33 WBC RBC Hgb Hct MCV MCH MCHC RDW Plt Count MPV Segmented Neutrophils Lymphocytes (Manual) Monocytes (Manual) Platelet Estimate RBC Morphology Sodium 156 H* Potassium 3.5 Chloride 100 Carbon Dioxide 19 L Anion Gap 40.0 H BUN 15 Creatinine 0.69 Estimated GFR > 60.0 Glucose 241 H Lactic Acid Calcium 9.6 Total Bilirubin 0.50 AST 50 H ALT 45 H Alkaline Phosphatase 136 H Ammonia < 9 L Serum Total Protein 7.6 Albumin 4.7 Prealbumin Thyroxine (T4) TSH 3rd Generation Urine Color Urine Appearance Urine pH Ur Specific [place] Urine Protein Urine Ketones Urine Blood Urine Nitrite Urine Bilirubin Urine Urobilinogen Ur Leukocyte Esterase Urine WBC (Auto) Urine RBC (Auto) U Hyaline Cast (Auto) U Epithel Cells (Auto) Urine Bacteria (Auto) Urine Mucus (Auto) Urine Culture Reflexed Urine Sodium Urine Potassium Urine Glucose Urine Opiates Level Ur Methadone Urine Barbiturates Ur Phencyclidine (PCP) Urine Amphetamine U Benzodiazepine Level Urine Cocaine Urine Marijuana (THC) Ethyl Alcohol < 10 Monoscreen NEGATIVE Influenza Type A Ag Influenza Type B Ag RSV (PCR) SARS-CoV-2 (PCR) 07/28/21 07/28/21 00:33 00:28 WBC 28.2 H* RBC 4.87 Hgb 15.3 Hct 44.5 MCV 91.4 MCH 31.4 MCHC 34.4 RDW 13.1 Plt Count 316 MPV 10.4 Segmented Neutrophils 83 H Lymphocytes (Manual) 11 L Monocytes (Manual) 6 Platelet Estimate NORMAL RBC Morphology NORMAL Sodium Potassium Chloride Carbon Dioxide Anion Gap BUN Creatinine Estimated GFR Glucose Lactic Acid Calcium Total Bilirubin AST ALT Alkaline Phosphatase Ammonia Serum Total Protein Albumin Prealbumin Thyroxine (T4) TSH 3rd Generation Urine Color Urine Appearance Urine pH Ur Specific [place] Urine Protein Urine Ketones Urine Blood Urine Nitrite Urine Bilirubin Urine Urobilinogen Ur Leukocyte Esterase Urine WBC (Auto) Urine RBC (Auto) U Hyaline Cast (Auto) U Epithel Cells (Auto) Urine Bacteria (Auto) Urine Mucus (Auto) Urine Culture Reflexed Urine Sodium Urine Potassium Urine Glucose Urine Opiates Level POSITIVE Ur Methadone NEGATIVE Urine Barbiturates NEGATIVE Ur Phencyclidine (PCP) NEGATIVE Urine Amphetamine NEGATIVE U Benzodiazepine Level NEGATIVE Urine Cocaine NEGATIVE Urine Marijuana (THC) NEGATIVE Ethyl Alcohol Monoscreen Influenza Type A Ag Influenza Type B Ag RSV (PCR) SARS-CoV-2 (PCR) Orders (Last 24 hours) Category Date Time Status Admit as Inpatient ROUTINE Care 07/29/21 05:06 Active Catheter-Edson Perez STAT Care 07/28/21 23:22 Completed Catheter-Edson Perez STAT Care 07/28/21 23:24 Completed Elevate HOB TOLERATED Care 07/29/21 05:06 Active IV Insertion STAT Care 07/28/21 23:22 Completed NPO (ED) STAT Care 07/28/21 23:22 Completed Pulse Oximetry (ED) STAT Care 07/28/21 23:22 Completed Seizure Precautions -SCCHED STAT Care 07/29/21 05:06 Active Telemetry PROTOCOL Care 07/29/21 05:06 Active Weight,Daily 0600 Care 07/29/21 05:06 Active Chairman & Co Founder/Discharge Plan ROUTINE Cons 07/29/21 06:16 Active NPO except Meds Diet 07/29/21 05:08 Active ABDOMEN AND PELVIS W/0 CONTRAS [CT] Stat Exams 07/28/21 23:43 Taken HEAD WITHOUT CONTRAST [CT] Stat Exams 07/28/21 23:10 Taken BLOOD CULTURE Stat Lab 07/29/21 00:15 Received CBC W DIFF AM.LAB Lab 07/30/21 04:00 Ordered CMP AM.LAB Lab 07/30/21 04:00 Ordered INFLUENZA A+B MARCO ANTONIO Stat Lab 07/28/21 23:27 Completed Lactic Acid Stat Lab 07/28/21 23:22 Completed Lactic Acid Stat Lab 07/29/21 02:18 Completed Osmolality, Urine Stat Lab 07/29/21 01:00 Received POTASSIUM, URINE RANDOM Stat Lab 07/29/21 01:54 Completed PREALBUMIN Routine Lab 07/29/21 00:01 Completed PROCALCITONIN Stat Lab 07/29/21 Ordered Sodium, Urine Stat Lab 07/29/21 01:54 Completed UA W/RFX UR CULTURE Stat Lab 07/29/21 00:28 Completed Acetaminophen 325 mg [Tylenol 325 mg] Med 07/29/21 01:57 Discontinued 650 mg .ROUTE .STK-MED ONE Acetaminophen 325 mg [Tylenol 325 mg] Med 07/29/21 05:06 Active 650 mg PO Q4H PRN PRN Acetaminophen 325 mg [Tylenol 325 mg] Med 07/29/21 01:55 Discontinued 650 mg PO STAT STA Ceftriaxone 1 GM/50 ML PREMIX* [ROCEPHIN 1 Gm-D5w 50 ml Med 07/29/21 22:00 Active Bag] 1 g in 50 ml IV Q24H22 Ceftriaxone 1 GM/50 ML PREMIX* [ROCEPHIN 1 Gm-D5w 50 ml Med 07/29/21 01:09 Discontinued Bag] 1 g in 50 ml IV STAT Ceftriaxone 1 GM/50 ML PREMIX* [ROCEPHIN 1 Gm-D5w 50 ml Med 07/29/21 01:33 Discontinued Bag] 1 g in 50 ml IV UD Ibuprofen 600 mg [Motrin 600 mg] Med 07/29/21 01:57 Discontinued 600 mg .ROUTE .STK-MED ONE Ibuprofen 600 mg [Motrin 600 mg] Med 07/29/21 01:55 Discontinued 600 mg PO STAT STA Lorazepam 2 mg/1 ml [Ativan 2 MG/1 ML VIAL] Med 07/29/21 05:06 Active 1 mg IV Q4H PRN PRN Lorazepam 2 mg/1 ml [Ativan 2 MG/1 ML VIAL] Med 07/28/21 23:50 Discontinued 1 mg IV STAT ONE Lorazepam 2 mg/1 ml [Ativan 2 MG/1 ML VIAL] Med 07/29/21 02:02 Discontinued 1 mg IV STAT ONE Lorazepam 2 mg/1 ml [Ativan 2 MG/1 ML VIAL] Med 07/28/21 23:50 Discontinued 2 mg .ROUTE .STK-MED ONE Lorazepam 2 mg/1 ml [Ativan 2 MG/1 ML VIAL] Med 07/29/21 02:04 Discontinued 2 mg .ROUTE .STK-MED ONE Methylprednis Sod Succ 125 mg* [solu-MEDROL] Med 07/29/21 03:30 Discontinued 125 mg .ROUTE .STK-MED ONE Methylprednis Sod Succ 125 mg* [solu-MEDROL] 125 mg Med 07/29/21 03:26 Discontinued Water For Injection,Sterile [Sterile H2O 10 ml] 2 ml IV STAT Metoprolol Tartrate 5 mg/5 ml* [Lopressor 5 mg/5 ml Med 07/29/21 03:30 Dis continued Injection] 5 mg IV .STK-MED ONE Metoprolol Tartrate 5 mg/5 ml* [Lopressor 5 mg/5 ml Med 07/29/21 03:26 Discontinued Injection] 5 mg IV STAT ONE Metronidazole 500 mg Premix [Flagyl 500 mg Ivpb] Med 07/29/21 01:09 Discontinued 500 mg in 100 ml IV STAT Metronidazole 500 mg Premix [Flagyl 500 mg Ivpb] Med 07/29/21 01:33 Discontinued 500 mg in 100 ml IV UD NaCl 0.45% 1000 ml [Sodium Chloride 0.45% 1000 ML] 1, Med 07/29/21 02:00 Discontinued 000 ml IV 200 mls/hr NaCl 0.45% 1000 ml [Sodium Chloride 0.45% 1000 ML] 1, Med 07/29/21 05:06 Active 000 ml IV 200 mls/hr NaCl 0.45% 1000 ml [Sodium Chloride 0.45% 1000 ML] 1, Med 07/29/21 01:39 Discontinued 000 ml IV UD NaCl 0.45% 1000 ml [Sodium Chloride 0.45% 1000 ML] 1, Med 07/29/21 06:52 Discontinued 000 ml IV UD NaCl 0.9% 1000 ml [Sodium Chloride 0.9% 1000 ML] ,000 Med 07/28/21 23:44 Discontinued ml .ROUTE UD NaCl 0.9% 1000 ml [Sodium Chloride 0.9% 1000 ML] 1,000 Med 07/28/21 23:30 Discontinued ml IV 100 mls/hr Ondansetron HCl 4 mg/2 ml [Zofran 4 MG/2 ML VIAL] Med 07/29/21 00:19 Discontinued 4 mg .ROUTE .STK-MED ONE Ondansetron HCl 4 mg/2 ml [Zofran 4 MG/2 ML VIAL] Med 07/29/21 01:33 Discontinued 4 mg .ROUTE .STK-MED ONE Ondansetron HCl 4 mg/2 ml [Zofran 4 MG/2 ML VIAL] Med 07/29/21 05:06 Active 4 mg IV Q6H PRN PRN Ondansetron HCl 4 mg/2 ml [Zofran 4 MG/2 ML VIAL] Med 07/28/21 23:58 Discontinued 4 mg IV STAT ONE Ondansetron HCl 4 mg/2 ml [Zofran 4 MG/2 ML VIAL] Med 07/29/21 01:13 Discontinued 4 mg IV STAT ONE Pantoprazole 40 mg [Protonix 40 mg IV] Med 07/29/21 01:33 Discontinued 40 mg IV .STK-MED ONE Pantoprazole 40 mg [Protonix 40 mg IV] Med 07/29/21 22:00 Active 40 mg IV Q24H22 Pantoprazole 40 mg [Protonix 40 mg IV] Med 07/29/21 01:13 Discontinued 40 mg IV STAT ONE Pharmacy Dose Request: Vancomy [Pharmacy Dosing Med 07/29/21 07:15 Discontinued Required: Vancomycin] 1 each ONCE ONE Vancomycin/Water For Inj (Peg) [Vancomycin 1 Gram/200 Med 07/29/21 12:00 A ctive ml Bag] 1 gm in 200 ml IV Q12H Vancomycin/Water For Inj (Peg) [Vancomycin 1 Gram/200 Med 07/29/21 01:37 Discontinued ml Bag] 1 gm in 200 ml IV STAT Vancomycin/Water For Inj (Peg) [Vancomycin 1 Gram/200 Med 07/29/21 02:28 Discontinued ml Bag] 1 gm in 200 ml IV UD Water For Injection,Sterile [Sterile H2O 10 ml] Med 07/29/21 03:30 Discontinued 10 ml IJ .STK-MED ONE EKG REPEAT IN AM RT 12/08/21 05:06 Completed Oxygen Nasal Cannula 4 lpm RT 07/29/21 05:16 Active Pulse Oximetry .continuos RT 07/29/21 05:16 Active Respiratory Therapy Consult ROUTINE RT 07/29/21 05:06 Completed Transfer Order Routine Transfer 07/29/21 Completed Patient Care Notes (Last 24 hours) 07/29/21 07:08 Pharmacy Note by Tirso Tong Pharmacokinetic dosing service Date: 07/29/21 Time: 0700 Objective: Patient: Dori Yoon Floor: 129 Age: 70 yo Serum creatinine: 0.69 mg/dL Height: 66 Inches Weight (kg): 77 Diagnosis: SEPSIS Relevant medical/social history: SUDDEN ONSET OF CONFUSION Cultures and sensitivities: PENDING Other labs: WBC >39926 Assessment: IBW (kg): 59.30 Dosing wt(kg): 77 Estimated Creatinine clearance (ml/min): 71.0 CRCL method: Cockcroft and Gault using ibw(default). Drug selected: Vancomycin Loading dose (mg): 0 Vd (liters): 53.9 (factor used: 0.7 L/kg) Dhruv (hr-1): 0.063 Half life (hrs): 11.00 Recommended dose: 1000 mg Interval: 12 hrs Infusion time (hrs): 1.5 Predicted peak (mcg/mL): 33.4 Predicted trough (mcg/mL): 17.24 Total body weight is being used for vancomycin dosing. Renal function is stable XXX] /unstable [ ] Recommendations: Give Vancomycin 1000 mg q 12 hrs with an expected Cpeak of 33.4 mcg/ml and an expected Ctrough of 17.24 mcg/ml Renal dosing of other antibiotics (review renal dosing of other medications and list guidelines here): NONE Thank you for the consult, will continue to follow. Signature: CLOVER Initialized on 07/29/21 07:08 - END OF NOTE 07/29/21 06:17 Nursing Note by Anahi Francisco Patient disoriented and does not answer questions appropriately at times. Patient is a very poor historian. Initialized on 07/29/21 06:17 - END OF NOTE Code(s): R41.0 - DISORIENTATION, UNSPECIFIED (2) Fever of unknown origin Current Visit: Yes Status: Acute (3) Hypernatremia Current Visit: Yes Status: Acute Code(s): E87.0 - HYPEROSMOLALITY AND HYPERNATREMIA (4) Hyperthyroidism Current Visit: Yes Status: Acute Code(s): E05.90 - THYROTOXICOSIS, UNSP WITHOUT THYROTOXIC CRISIS OR STORM
[2021-07-29] MEDS: Zofran 4 MG/2 ML VIAL IV PRN (08:29)
[2021-07-29] MEDS: Ativan 2 MG/1 ML VIAL IV PRN ×5 (08:30→23:07)
--- NOTE | 2021-07-29 09:04 | XRAY ---
Indication: Acute mental status change. Stroke. Multiple contiguous images obtained through the head without contrast. Comparison: None Age-appropriate global atrophy. No acute intracranial hemorrhage, abnormal extra-axial fluid collection, or mass effect. Fourth ventricle is midline without hydrocephalus. Mascorro-white matter differentiation preserved. Bony calvarium intact. Visualized paranasal sinuses and mastoid air cells are clear. Impression: Negative CT head without contrast exam. Comment: Preliminary interpretation made by [facility]. No critical discrepancy.
--- NOTE | 2021-07-29 09:08 | XRAY ---
Indication: Lower pelvic pain, nausea, vomiting, and diarrhea. Acute mental status change. Multiple contiguous images obtained through the abdomen and pelvis without contrast. Comparison: None Study is slightly degraded by respiration artifact and right total hip arthroplasty beam artifact. Lung bases are clear of infiltrate or effusion. Heart is not enlarged. Visualized distal esophagus is moderately fluid distended presumed from gastroesophageal reflux. Also a few distal paraesophageal surgical clips. Noncontrasted stomach and bowel loops appear nonobstructed. Scattered distal transverse, descending, and sigmoid diverticulosis. Previous cholecystectomy. No free fluid/air. Right kidney demonstrates 4 cm peripelvic cyst. Urinary bladder is near empty with Perez balloon catheter in situ. Remaining liver, pancreas, spleen, adrenal glands, kidneys, and ureters are unremarkable for noncontrast exam. Mild scattered aortoiliac calcifications without AAA. Osseous structures intact with minimal multilevel degenerative changes and T10/T11 kyphoplasty. Impression: 1. Respiration and beam artifact. 2. Fluid distended esophagus presumed from gastroesophageal reflux. 3. Incidental colonic diverticulosis, right renal cyst, and chronic bony findings. 4. Remaining CT abdomen/pelvis without contrast exam is grossly negative. Comment: Preliminary interpretation made by [facility]. No critical discrepancy.
--- NOTE | 2021-07-29 09:10 | XRAY ---
Indication: Fever and cough. Suspect Covid 19. Central line placement. Comparison: June 20, 2019. Portable chest is now clear. Heart not enlarged. New left subclavian central venous access catheter with the tip projecting over the SVC without pneumothorax. Bony thorax intact with osteopenia, degenerative changes, old left 8 rib fracture, T8-T11 kyphoplasty, and lower cervical fusion surgery. Impression: New left central venous access catheter without complications. Nonacute chest with chronic bony findings.
[2021-07-29] MEDS: SUBLIMAZE 100 MCG/2 ML IV PRN ×2 (10:20→23:07)
[2021-07-29] MEDS: PTU 50MG PO SCH ×2 (10:21→20:50)
[2021-07-29] MEDS ORDERED: VANCOMYCIN 1 GRAM/200 ML BAG 1 GM/200 ML PIGGYBACK IV SCH (12:00)
[2021-07-29] MEDS ORDERED: MEDICATION INTERVENTION PO SCH ×3 (13:30)
[2021-07-29] MEDS ORDERED: VANCOCIN 1 GM VIAL*** 1 GM in Sodium Chloride 0.9% 250 ML 250 ML IV SCH (14:00)
[2021-07-29] MEDS ORDERED: CALCIUM CITRATE PO SCH (15:00)
[2021-07-29] MEDS ORDERED: VITAMIN D3 PO SCH (15:00)
[2021-07-29] MEDS ORDERED: [UNRECOGNIZED DRUG - OTHER] PO SCH (15:00)
[2021-07-29] MEDS: Aldactone 25 MG PO SCH (15:23)
[2021-07-29] MEDS: Betapace 80 MG PO SCH ×2 (15:24→20:50)
[2021-07-29] MEDS: FERREX 150 PO SCH (15:25)
[2021-07-29] MEDS: Ditropan XL 5 MG PO SCH (15:25)
[2021-07-29] MEDS: LASIX 20 MG PO SCH (15:25)
[2021-07-29] MEDS: THERAGRAN MULTIVITAMIN PO SCH (15:26)
[2021-07-29] MEDS: Toprol-Xl 25MG Tablets PO SCH (15:26)
[2021-07-29] MEDS: Zestril 5 MG PO SCH (15:26)
[2021-07-29] MEDS: ZOCOR 20MG PO SCH (15:27)
[2021-07-29] MEDS: ZOLOFT 50 MG TABLET PO SCH (15:28)
[2021-07-29] MEDS: NEURONTIN 300 MG PO SCH ×2 (15:29→20:49)
[2021-07-29] MEDS: Calcium 500MG W/Vit D Tablet PO SCH ×2 (15:29→20:49)
[2021-07-29] MEDS: Zithromax 500 MG/ 250 ML NaCl Premix 500 MG/250 ML IVPB IV SCH (15:50)
[2021-07-29] MEDS: TYLENOL 325 MG PO PRN (20:49)
[2021-07-29] MEDS ORDERED: ELAVIL 25 MG PO SCH (22:00)
[2021-07-29] MEDS ORDERED: SOTALOL HCL 160 MG PO SCH (22:00)
[2021-07-29] MEDS ORDERED: NON-FORMULARY ITEM (Cariprazine Hcl [Vraylar] 3 MG Capsule) PO SCH (22:00)
[2021-07-29] MEDS ORDERED: ROCEPHIN 1 Gm-D5w 50 ml Bag** 1 G/50 ML IVPB IV SCH (22:00)
[2021-07-29] MEDS ORDERED: PROTONIX 40 MG IV IV SCH (22:00)
[2021-07-30 03:23] LABS: Amphetamine,Urine NEGATIVE (NEGATIVE); Barbiturate,Urine NEGATIVE (NEGATIVE); Benzodiazepine,Urine NEGATIVE (NEGATIVE); Cocaine,Urine NEGATIVE (NEGATIVE); Methadone,Urine NEGATIVE (NEGATIVE); Opiate,Urine POSITIVE (NEGATIVE); PCP,Urine NEGATIVE (NEGATIVE); THC,Urine NEGATIVE (NEGATIVE)
[2021-07-30 03:25] LABS: Hematocrit 44.5 % (35-47); Hemoglobin 15.3 gm/dl (12.0-16.0); Mean Cell Volume 91.4 fl (78-100); Mean Corpuscular Hemoglobin 31.4 pg (26-32); Mean Corpuscular Hgb Concent. 34.4 g/dl (32-36); Platelet Count 316 K/mm3 (150-450); Red Blood Count 4.87 M/mm3 (4.1-5.4); Red Cell Distribution Width 13.1 % (11.5-14.0); White Blood Count 28.2 K/mm3 (4.0-10.5)
[2021-07-30 03:26] LABS: Mean Platelet Volume 10.4 fl (7.5-11.0)
[2021-07-30 03:28] LABS: Lymphocytes 11 % (24-44); Monocyte 6 % (0.0-12.0); Neutrophils 83 % (36.0-66.0); Platelet Estimate NORMAL (NORMAL); Total Cells Counted 100
[2021-07-30 03:29] LABS: BLOOD UREA NITROGEN 15 mg/dL (7-17); Creatinine 1 0.69 mg/dL (0.52-1.04); EST GLOMERULAR FILTRATION RATE > 60.0 ML/MIN; Glucose 241 mg/dL (74-106)
[2021-07-30 03:30] LABS: ALBUMIN 4.7 g/dL (3.5-5.0); ALKALINE PHOSPHATASE 136 U/L (38-126); CHLORIDE 100 mmol/L (98-107); Calcium 9.6 mg/dL (8.4-10.2); Carbon Dioxide 19 mmol/L (22-30); Potassium 3.5 mmol/L (3.5-5.1); SGOT/AST 50 U/L (14-36); SGPT/ALT 45 U/L (0-35); SODIUM 156 mmol/L (137-145); Total Protein 7.6 g/dL (6.3-8.2)
[2021-07-30 03:31] LABS: ETHYL ALCOHOL < 10 mg/dL (0-10); T4 (Thyroxine) 15.5 ug/dL (5.53-10.96); TSH, 3RD Generation < 0.015 mIU/L (0.47-4.68)
[2021-07-30] MEDS: TYLENOL 325 MG PO PRN (05:18)
[2021-07-30 05:53] LABS: Absolute Neutrophil Ct (ANC) 14.63 (1.4-6.9); BASOPHIL % 0.1 % (0.0-0.4); Basophil (Absolute #) 0.01 (0-0.4); Eosinophil (Absolute #) 0 (0-0.5); Hematocrit 33.7 % (35-47); Hemoglobin 10.7 gm/dl (12.0-16.0); Lymphocyte (Absolute #) 1.67 (1.0-4.6); Lymphocytes % 9.6 % (24.0-44.0); Mean Cell Volume 96.8 fl (78-100); Mean Corpuscular Hemoglobin 30.7 pg (26-32); Mean Corpuscular Hgb Concent. 31.8 g/dl (32-36); Monocyte (Absolute #) 1.06 (0.0-1.3); Monocytes % 6.1 % (0.0-12.0); Neutrophil % 84.2 % (36.0-66.0); Platelet Count 116 K/mm3 (150-450); Red Blood Count 3.48 M/mm3 (4.1-5.4); Red Cell Distribution Width 13.8 % (11.5-14.0); White Blood Count 17.4 K/mm3 (4.0-10.5)
[2021-07-30] MEDS: SUBLIMAZE 100 MCG/2 ML IV PRN ×3 (06:05→13:30)
[2021-07-30 06:18] LABS: ALKALINE PHOSPHATASE 51 U/L (38-126); ANION GAP 10.7 MEQ/L (5-15); BLOOD UREA NITROGEN 13 mg/dL (7-17); CHLORIDE 106 mmol/L (98-107); Calcium 6.7 mg/dL (8.4-10.2); Carbon Dioxide 24 mmol/L (22-30); Creatinine 1 0.54 mg/dL (0.52-1.04); EST GLOMERULAR FILTRATION RATE > 60.0 ML/MIN; Glucose 96 mg/dL (74-106); Potassium 3.3 mmol/L (3.5-5.1); SGOT/AST 46 U/L (14-36); SGPT/ALT 27 U/L (0-35); SODIUM 138 mmol/L (137-145); Total Protein 5.2 g/dL (6.3-8.2)
--- NOTE | 2021-07-30 07:42 | PCM.NOTE ---
Date and Time: 07/30/21740 Subjective Assessment: doing better - Review of Systems Constitutional: No Fever, No Chills Eyes: No Symptoms Ears, Nose, & Throat: No Symptoms Respiratory: No Cough, No Short Of Breath Cardiac: No Chest Pain, No Edema, No Syncope Abdominal/Gastrointestinal: No Abdominal Pain, No Nausea, No Vomiting, No Diarrhea Genitourinary Symptoms: No Dysuria Musculoskeletal: No Back Pain, No Neck Pain Skin: No Rash Neurological: No Dizziness, No Focal Weakness, No Sensory Changes Psychological: No Symptoms Endocrine: No Symptoms Hematologic/Lymphatic: No Symptoms Immunological/Allergic: No Symptoms Objective Exam General Appearance: no apparent distress, alert Neurologic Exam: alert, cooperative, normal mood/affect, sensation nml, No motor deficits Skin Exam: normal color, warm, dry Eye Exam: PERRL, EOMI, eyes nml inspection Ears, Nose, Throat Exam: normal ENT inspection, pharynx normal, moist mucous membranes Neck Exam: normal inspection, non-tender, supple, full range of motion Respiratory Exam: normal breath sounds, lungs clear, No respiratory distress Cardiovascular Exam: regular rate/rhythm, normal heart sounds Gastrointestinal/Abdomen Exam: soft, No tenderness, No mass Extremity Exam: normal inspection, normal range of motion Back Exam: normal inspection, normal range of motion, No CVA tenderness, No vertebral tenderness Pelvic Exam: deferred Rectal Exam: deferred OBJECTIVE DATA Vital Signs: Vital Signs - 24 hr Temp Pulse Resp BP Pulse Ox 07/30/21 04:15 100.0 F 86 25 H 106/64 94 L 07/30/21 04:00 90 07/30/21 00:01 86 07/29/21 23:24 100.6 F 86 24 120/72 96 07/29/21 20:00 100.2 F 107 H 24 133/89 95 07/29/21 18:38 92 L 07/29/21 16:00 100.6 F 117 H 21 122/82 90 L 07/29/21 15:50 114 H 22 07/29/21 13:45 102 H 20 07/29/21 12:00 101.1 F 118 H 18 139/86 93 L 07/29/21 11:54 102 H 20 07/29/21 11:39 108 H 07/29/21 08:48 105 H 07/29/21 08:30 100 H 20 07/29/21 07:58 92 L Pain Assessment - Last Documented Pain Intensity 6 Pain Scale Used 0-10 Pain Scale Intake and Output: Intake & Output 07/27/21 07/28/21 07/29/21 07/30/21 11:59 11:59 11:59 11:59 Intake Total 1141 4237 Output Total 401 3935 Balance 740 5812 Weight 77.3 kg 77 kg Lab Results: Lab Results-Last 24 Hours 07/28/21 07/28/21 07/28/21 Range/Units 00:28 00:33 00:33 WBC Cancelled Corrected WBC (auto) Cancelled RBC Cancelled Hgb Cancelled Hct Cancelled MCV Cancelled MCH Cancelled MCHC Cancelled RDW Cancelled Plt Count Cancelled MPV Cancelled Gran % Cancelled Eos # (Auto) Cancelled Absolute Lymphs (auto) Cancelled Absolute Monos (auto) Cancelled Lymphocytes % Cancelled Monocytes % Cancelled Eosinophils % Cancelled Basophils % Cancelled Absolute Granulocytes Cancelled Absolute Neutrophils Cancelled Segmented Neutrophils Cancelled Band Neutrophils Cancelled Lymphocytes (Manual) Cancelled Monocytes (Manual) Cancelled Eosinophils (Manual) Cancelled Basophils (Manual) Cancelled Basophils # Cancelled Metamyelocytes Cancelled Myelocytes Cancelled Promyelocytes Cancelled Nucleated RBCs Cancelled Hypersegmented Polys Cancelled Atypical Lymphocytes Cancelled Blast Cells Cancelled Plasma Cells Cancelled Other Cell Type Cancelled Hypochromia Cancelled Toxic Granulation Cancelled Dohle Bodies Cancelled Annalisa Rods Cancelled Platelet Estimate Cancelled RBC Morphology Cancelled Polychromasia Cancelled Poikilocytosis Cancelled Basophilic Stippling Cancelled Anisocytosis Cancelled Microcytosis Cancelled Macrocytosis Cancelled Spherocytes Cancelled Sickle Cells Cancelled Target Cells Cancelled Tear Drop Cells Cancelled Ovalocytes Cancelled Stomatocytes Cancelled Helmet Cells Cancelled Alberts-Calion Bodies Cancelled [place] Rings Cancelled [place] Cells Cancelled Acanthocytes (Spur) Cancelled Rouleaux Cancelled Schistocytes Cancelled Morphology Comment Cancelled Sodium Cancelled Potassium Cancelled Chloride Cancelled Carbon Dioxide Cancelled Anion Gap Cancelled BUN Cancelled Creatinine Cancelled Estimated GFR Cancelled Glucose Cancelled Calcium Cancelled Total Bilirubin Cancelled AST Cancelled ALT Cancelled Alkaline Phosphatase Cancelled Ammonia Serum Total Protein Cancelled Albumin Cancelled Procalcitonin (0.030-0.080) ng/mL Thyroxine (T4) TSH 3rd Generation Urine Opiates Level Cancelled Ur Methadone Cancelled Urine Barbiturates Cancelled Ur Phencyclidine (PCP) Cancelled Urine Amphetamine Cancelled U Benzodiazepine Level Cancelled Urine Cocaine Cancelled Urine Marijuana (THC) Cancelled Ethyl Alcohol Cancelled Monoscreen Slides for Path Review Cancelled 07/28/21 07/28/21 07/28/21 Range/Units 00:33 00:33 00:33 WBC Corrected WBC (auto) RBC Hgb Hct MCV MCH MCHC RDW Plt Count MPV Gran % Eos # (Auto) Absolute Lymphs (auto) Absolute Monos (auto) Lymphocytes % Monocytes % Eosinophils % Basophils % Absolute Granulocytes Absolute Neutrophils Segmented Neutrophils Band Neutrophils Lymphocytes (Manual) Monocytes (Manual) Eosinophils (Manual) Basophils (Manual) Basophils # Metamyelocytes Myelocytes Promyelocytes Nucleated RBCs Hypersegmented Polys Atypical Lymphocytes Blast Cells Plasma Cells Other Cell Type Hypochromia Toxic Granulation Dohle Bodies Annalisa Rods Platelet Estimate RBC Morphology Polychromasia Poikilocytosis Basophilic Stippling Anisocytosis Microcytosis Macrocytosis Spherocytes Sickle Cells Target Cells Tear Drop Cells Ovalocytes Stomatocytes Helmet Cells Alberts-Calion Bodies [place] Rings [place] Cells Acanthocytes (Spur) Rouleaux Schistocytes Morphology Comment Sodium Potassium Chloride Carbon Dioxide Anion Gap BUN Creatinine Estimated GFR Glucose Calcium Total Bilirubin AST ALT Alkaline Phosphatase Ammonia Cancelled Serum Total Protein Albumin Procalcitonin (0.030-0.080) ng/mL Thyroxine (T4) Cancelled TSH 3rd Generation Cancelled Urine Opiates Level Ur Methadone Urine Barbiturates Ur Phencyclidine (PCP) Urine Amphetamine U Benzodiazepine Level Urine Cocaine Urine Marijuana (THC) Ethyl Alcohol Monoscreen Cancelled Slides for Path Review 07/29/21 07/29/21 07/29/21 Range/Units 00:33 00:33 00:33 WBC Corrected WBC (auto) RBC Hgb Hct MCV MCH MCHC RDW Plt Count MPV Gran % Eos # (Auto) Absolute Lymphs (auto) Absolute Monos (auto) Lymphocytes % Monocytes % Eosinophils % Basophils % Absolute Granulocytes Absolute Neutrophils Segmented Neutrophils Band Neutrophils Lymphocytes (Manual) Monocytes (Manual) Eosinophils (Manual) Basophils (Manual) Basophils # Metamyelocytes Myelocytes Promyelocytes Nucleated RBCs Hypersegmented Polys Atypical Lymphocytes Blast Cells Plasma Cells Other Cell Type Hypochromia Toxic Granulation Dohle Bodies Annalsia Rods Platelet Estimate RBC Morphology Polychromasia Poikilocytosis Basophilic Stippling Anisocytosis Microcytosis Macrocytosis Spherocytes Sickle Cells Target Cells Tear Drop Cells Ovalocytes Stomatocytes Helmet Cells Alberts-Calion Bodies [place] Rings [place] Cells Acanthocytes (Spur) Rouleaux Schistocytes Morphology Comment Sodium 156 H* Potassium 3.5 Chloride 100 Carbon Dioxide 19 L Anion Gap 40.0 H BUN 15 Creatinine 0.69 Estimated GFR > 60.0 Glucose 241 H Calcium 9.6 Total Bilirubin 0.50 AST 50 H ALT 45 H Alkaline Phosphatase 136 H Ammonia < 9 L Serum Total Protein 7.6 Albumin 4.7 Procalcitonin (0.030-0.080) ng/mL Thyroxine (T4) 15.5 H TSH 3rd Generation < 0.015 L Urine Opiates Level POSITIVE Ur Methadone NEGATIVE Urine Barbiturates NEGATIVE Ur Phencyclidine (PCP) NEGATIVE Urine Amphetamine NEGATIVE U Benzodiazepine Level NEGATIVE Urine Cocaine NEGATIVE Urine Marijuana (THC) NEGATIVE Ethyl Alcohol < 10 Monoscreen Slides for Path Review 07/29/21 07/29/21 07/29/21 Range/Units 00:33 00:33 07:00 WBC 28.2 H* Corrected WBC (auto) RBC 4.87 Hgb 15.3 Hct 44.5 MCV 91.4 MCH 31.4 MCHC 34.4 RDW 13.1 Plt Count 316 MPV 10.4 Gran % Eos # (Auto) Absolute Lymphs (auto) Absolute Monos (auto) Lymphocytes % Monocytes % Eosinophils % Basophils % Absolute Granulocytes Absolute Neutrophils Segmented Neutrophils 83 H Band Neutrophils Lymphocytes (Manual) 11 L Monocytes (Manual) 6 Eosinophils (Manual) Basophils (Manual) Basophils # Metamyelocytes Myelocytes Promyelocytes Nucleated RBCs Hypersegmented Polys Atypical Lymphocytes Blast Cells Plasma Cells Other Cell Type Hypochromia Toxic Granulation Dohle Bodies Annalisa Rods Platelet Estimate NORMAL RBC Morphology NORMAL Polychromasia Poikilocytosis Basophilic Stippling Anisocytosis Microcytosis Macrocytosis Spherocytes Sickle Cells Target Cells Tear Drop Cells Ovalocytes Stomatocytes Helmet Cells Alberts-Calion Bodies [place] Rings Eduardo Cells Acanthocytes (Spur) Rouleaux Schistocytes Morphology Comment Sodium Potassium Chloride Carbon Dioxide Anion Gap BUN Creatinine Estimated GFR Glucose Calcium Total Bilirubin AST ALT Alkaline Phosphatase Ammonia Serum Total Protein Albumin Procalcitonin 0.064 (0.030-0.080) ng/mL Thyroxine (T4) TSH 3rd Generation Urine Opiates Level Ur Methadone Urine Barbiturates Ur Phencyclidine (PCP) Urine Amphetamine U Benzodiazepine Level Urine Cocaine Urine Marijuana (THC) Ethyl Alcohol Monoscreen NEGATIVE Slides for Path Review 07/30/21 07/30/21 Range/Units 04:42 04:42 WBC 17.4 H Corrected WBC (auto) RBC 3.48 L Hgb 10.7 L D Hct 33.7 L MCV 96.8 MCH 30.7 MCHC 31.8 L RDW 13.8 Plt Count 116 L D MPV 10.0 Gran % 84.2 H Eos # (Auto) 0 Absolute Lymphs (auto) 1.67 Absolute Monos (auto) 1.06 Lymphocytes % 9.6 L Monocytes % 6.1 Eosinophils % 0.0 Basophils % 0.1 Absolute Granulocytes 14.63 H Absolute Neutrophils Segmented Neutrophils Band Neutrophils Lymphocytes (Manual) Monocytes (Manual) Eosinophils (Manual) Basophils (Manual) Basophils # 0.01 Metamyelocytes Myelocytes Promyelocytes Nucleated RBCs Hypersegmented Polys Atypical Lymphocytes Blast Cells Plasma Cells Other Cell Type Hypochromia Toxic Granulation Dohle Bodies Annalisa Rods Platelet Estimate RBC Morphology Polychromasia Poikilocytosis Basophilic Stippling Anisocytosis Microcytosis Macrocytosis Spherocytes Sickle Cells Target Cells Tear Drop Cells Ovalocytes Stomatocytes Helmet Cells Alberts-Calion Bodies [place] Rings Eduardo Cells Acanthocytes (Spur) Rouleaux Schistocytes Morphology Comment Sodium 138 D Potassium 3.3 L Chloride 106 Carbon Dioxide 24 Anion Gap 10.7 BUN 13 Creatinine 0.54 Estimated GFR > 60.0 Glucose 96 Calcium 6.7 L D Total Bilirubin 0.80 AST 46 H ALT 27 Alkaline Phosphatase 51 Ammonia Serum Total Protein 5.2 L Albumin 3.0 L Procalcitonin (0.030-0.080) ng/mL Thyroxine (T4) TSH 3rd Generation Urine Opiates Level Ur Methadone Urine Barbiturates Ur Phencyclidine (PCP) Urine Amphetamine U Benzodiazepine Level Urine Cocaine Urine Marijuana (THC) Ethyl Alcohol Monoscreen Slides for Path Review Radiology Exams: Radiology Procedures Category Date Time Status ABDOMEN AND PELVIS W/0 CONTRAS [CT] Stat Exams 07/28/21 23:43 Completed HEAD WITHOUT CONTRAST [CT] Stat Exams 07/28/21 23:10 Completed Multi-Disciplinary Progress Notes: Multi-Disciplinary Progress Notes 07/29/21 10:28 Case Management Note by Monica Spear CALLED JESSICA FLORES TO DISCUSS CASE MANAGEMENT NEEDS. NO ANSWER- LM Initialized on 07/29/21 10:28 - END OF NOTE Assessment/Plan (1) Confusion Current Visit: Yes Status: Acute Code(s): R41.0 - DISORIENTATION, UNSPECIFIED (2) Fever of unknown origin Current Visit: Yes Status: Resolved (3) Hypernatremia Current Visit: Yes Status: Acute Code(s): E87.0 - HYPEROSMOLALITY AND HYPERNATREMIA (4) Hyperthyroidism Current Visit: Yes Status: Acute Code(s): E05.90 - THYROTOXICOSIS, UNSP WITHOUT THYROTOXIC CRISIS OR STORM
[2021-07-30] MEDS ORDERED: K-LYTE 25 MEQ PO ONE (09:19)
[2021-07-30] MEDS ORDERED: SYNTHROID 75 MCG PO SCH (10:00)
[2021-07-30] MEDS ORDERED: NON-FORMULARY ITEM (Potassium Gluconate [Potassium] 99 MG Tablet) PO SCH (10:00)
[2021-07-30] MEDS ORDERED: ALBUTEROL SULFATE 4 MG PO SCH (10:00)
[2021-07-30] MEDS ORDERED: MULTIVITAMIN WITH MINERALS PO SCH (10:00)
[2021-07-30] MEDS ORDERED: LIPITOR 40MG PO SCH (10:00)
[2021-07-30] MEDS: Toprol-Xl 25MG Tablets PO SCH (10:48)
[2021-07-30] MEDS: THERAGRAN MULTIVITAMIN PO SCH (10:48)
[2021-07-30] MEDS: Ativan 2 MG/1 ML VIAL IV PRN (10:48)
[2021-07-30] MEDS: Betapace 80 MG PO SCH (10:49)
[2021-07-30] MEDS: ZOCOR 20MG PO SCH (10:49)
[2021-07-30] MEDS: Calcium 500MG W/Vit D Tablet PO SCH ×2 (10:49→14:42)
[2021-07-30] MEDS: Zestril 5 MG PO SCH (10:49)
[2021-07-30] MEDS: LASIX 20 MG PO SCH (10:49)
[2021-07-30] MEDS: Aldactone 25 MG PO SCH (10:49)
[2021-07-30] MEDS: FERREX 150 PO SCH (10:50)
[2021-07-30] MEDS: Ditropan XL 5 MG PO SCH (10:50)
[2021-07-30] MEDS: NEURONTIN 300 MG PO SCH ×2 (10:50→14:42)
[2021-07-30] MEDS: PTU 50MG PO SCH (10:52)
[2021-07-30] MEDS: Zofran 4 MG/2 ML VIAL IV PRN (11:01)
[2021-07-30] MEDS: Zithromax 500 MG/ 250 ML NaCl Premix 500 MG/250 ML IVPB IV SCH (11:01)
[2021-07-30] MEDS ORDERED: Klor Con 10 MEQ PO ONE (11:17)
[2021-07-30] MEDS ORDERED: NON-FORMULARY ITEM (Sertraline Hcl [Zoloft] 100 MG Tablet) PO SCH (12:00)
[2021-07-30 12:30] LABS: Hematocrit 34.5 % (35-47); Hemoglobin 11.1 gm/dl (12.0-16.0); Mean Cell Volume 96.9 fl (78-100); Mean Corpuscular Hemoglobin 31.2 pg (26-32); Mean Corpuscular Hgb Concent. 32.2 g/dl (32-36); Mean Platelet Volume 10.2 fl (7.5-11.0); Platelet Count 126 K/mm3 (150-450); Red Blood Count 3.56 M/mm3 (4.1-5.4); Red Cell Distribution Width 13.7 % (11.5-14.0); White Blood Count 16.9 K/mm3 (4.0-10.5)
[2021-07-30] MEDS: ZOLOFT 50 MG TABLET PO SCH (12:55)
[2021-07-30 13:06] LABS: ANION GAP 9.6 MEQ/L (5-15); BLOOD UREA NITROGEN 12 mg/dL (7-17); CHLORIDE 105 mmol/L (98-107); Carbon Dioxide 26 mmol/L (22-30); Creatinine 1 0.49 mg/dL (0.52-1.04); EST GLOMERULAR FILTRATION RATE > 60.0 ML/MIN; Glucose 120 mg/dL (74-106); Potassium 3.4 mmol/L (3.5-5.1); SODIUM 137 mmol/L (137-145)
[2021-07-30 13:53] VITALS: BP 146/83; PULSE 74; O2SAT 96
== END 2021-07-30 16:28 | disposition home or self-care (01) | DRG 948 ==
LOC: ED 22:57 → ICU 07-29 04:18
PROVIDERS: ADMIT General Practice; ATTEND General Practice
DX: R41.0 Disorientation, unspecified (principal); E87.0 Hyperosmolality and hypernatremia; E05.90 Thyrotoxicosis, unspecified without thyrotoxic crisis or storm; R50.9 Fever, unspecified; D72.829 Elevated white blood cell count, unspecified; I10 Essential (primary) hypertension; J44.9 Chronic obstructive pulmonary disease, unspecified; E03.9 Hypothyroidism, unspecified; Z79.899 Other long term (current) drug therapy; Z20.828 Contact with and (suspected) exposure to other viral communicable diseases
CPT/HCPCS: 0241U; 36000; 36415; 51702; 70450; 71045; 74176; 80048; 80053; 80307; 81001; 82140; 83605; 83935; 84133; 84134; 84145; 84300; 84436; 84443; 85025; 85027; 86308; 87040; 87077; 87086; 87186; 87400; 93005; 94760; 96360; 96374; 96375; 99285; 99291; G0480; J0456; J0696; J1642; J2060; J2405; J2930; J3010; A9270-GY; J3370

== ENCOUNTER 2021-08-06 16:41 | Emergency (ER) | payer MEDICARE ==
[2021-08-06 16:55] VITALS: BP 102/44; PULSE 59; O2SAT 96
--- NOTE | 2021-08-06 16:56 | ERPHSYRPT ---
- History of Present Illness Time Seen by Provider: 08/06/21 16:56 Source: patient Exam Limitations: no limitations Patient Subjective Stated Complaint: Pt states that she "blacks out and twitches" she thinks she is having seizures, she also has pain in her right hip and right back due to a fall out of her wheelchair a week Tuesday Triage Nursing Assessment: Pt brought to the ER by EMS due to what she thinks is a 2 second seizure, she thinks she blacks out and twitches, vitals wnl, rates pain as 10/10, pt is talking clearly and answering questions, c/o of pain in the right hip and right back from falling out of her wheelchair a week ago Tuesday, pulses normal, skin n/w/d, doesn't appear to be in any distress Physician History: 70-year-old white female patient of Dr. Samuels who presents with twitches which are generalized and intermittent as well as some back pain and right hip pain. Patient is a right [id number]-[id number] amputation patient for many years ago. She has a history of hypertension, COPD, coronary disease, elevated cholesterol and hypothyroidism. Dr. Aceves is her ticket marker. She denies chest pain at this time. She denies shortness of breath. She is mainly concerned about the twitching episodes she is having. An EKG was performed and there was a question of PVC versus an acute inferior myocardial infarction. The EKG was sent to emergency room Dr. Bauer he was not convinced either that there was an acute CT present. Therefore, we sent the EKG to ticket marker Dr. Juarez. He called back and read both EKGs and felt that the patient has an atypical presentation for an inferior CT and he recommends that we give the patient aspirin and heparin and send the patient out. There is no need for nitroglycerin. Severity of Pain-Max: none (No chest pain) Severity of Pain-Current: none (No chest pain) Lower Extremities Pain: hip: right (Mild) Modifying Factors: Improves With: nothing Associated Symptoms: none Allergies/Adverse Reactions: ciprofloxacin [From Cipro] Allergy (Severe, Verified 08/06/21 16:55) Swelling diphenhydramine HCl [From Benadryl] Allergy (Intermediate, Verified 08/06/21 16:55) swelling, hives, seizures pentazocine lactate [From Talwin] Allergy (Intermediate, Verified 08/06/21 16:55) swelling, hives Penicillins Allergy (Verified 08/06/21 16:55) swelling,hives Home Medications: Hydrocodone/Acetaminophen [Hydrocodone-Acetamin 10-325 mg] 1 ea PO QID PRN PRN 01/24/17 [History] Albuterol Sulfate 4 mg PO DAILY 07/29/21 [History] Amitriptyline HCl 25 mg [Elavil 25 mg] 25 mg PO HS 07/29/21 [History] Atorvastatin Calcium [Lipitor] 40 mg PO DAILY 07/29/21 [History] Calcium Citrate/Vitamin D3 [Citracal-D3 200Mg-250 Unit Tab] 2 each PO TID 07/29/21 [History] Cariprazine HCl [Vraylar] 3 mg PO QHS 07/29/21 [History] Furosemide [Lasix] 20 mg PO DAILY 07/29/21 [History] Gabapentin 300 mg [Neurontin 300 mg] 600 mg PO TID 07/29/21 [History] Iron Polysaccharides Complex [Ferrex 150] 150 mg PO DAILY 07/29/21 [History] Lorazepam 1 mg [Ativan 1 MG] 1 mg PO TID 07/29/21 [History] Metoprolol Succinate [Toprol Xl] 25 mg PO DAILY 07/29/21 [History] Morphine Sulfate [Morphine Sulfate ER] 15 mg PO BID 07/29/21 [History] Multivitamin with Minerals [One Daily Complete] 1 each PO DAILY 07/29/21 [History] Oxybutynin Chloride [Oxybutynin Chloride ER] 5 mg PO DAILY 07/29/21 [History] Potassium Gluconate [Potassium] 99 mg PO DAILY 07/29/21 [History] Sertraline HCl [Zoloft] 100 mg PO LUNCH 07/29/21 [History] Sotalol HCl [Sotalol] 160 mg PO BID 07/29/21 [History] Spironolactone [Aldactone] 12.5 mg PO DAILY 07/29/21 [History] lisinopriL [Lisinopril] 2.5 mg PO DAILY 07/29/21 [History] Hx Tetanus, Diphtheria Vaccination/Date Given: Yes Hx Influenza Vaccination/Date Given: Yes Hx Pneumococcal Vaccination/Date Given: Yes Travel Risk - International Travel Have you traveled outside of the country in past 3 weeks: No - Coronavirus Screening Are you exhibiting any of the following symptoms?: No - Vaccine Status Have you recieved a Covid-19 vaccination: Yes 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 - Vaccination Dates Date of 2cond Vaccination (if applicable): 10/2020 - Review of Systems Constitutional: No Symptoms Eyes: No Symptoms Ears, Nose, & Throat: No Symptoms Respiratory: No Symptoms Cardiac: No Symptoms Abdominal/Gastrointestinal: No Symptoms Genitourinary Symptoms: No Symptoms Musculoskeletal: Back Pain Skin: No Symptoms Neurological: No Symptoms Psychological: No Symptoms Endocrine: No Symptoms Hematologic/Lymphatic: No Symptoms Immunological/Allergic: No Symptoms All Other Systems: Reviewed and Negative - Past Medical History Pertinent Past Medical History: Yes Neurological History: Migraines ENT History: Cataracts Cardiac History: Hypertension Respiratory History: COPD Endocrine Medical History: Hypothyroidism Musculoskeletal History: Other GI Medical History: Diverticulosis History: No Pertinent History Psycho-Social History: No Pertinent History Female Reproductive Disorders: No Pertinent History Other Medical History: mitral valve prolapse, R AKA. *Patient disoriented and poor historian. All medical history obtained from previous documentation. - Past Surgical History Past Surgical History: Yes Neuro Surgical History: No Pertinent History Cardiac: Cardiac Catheterization Respiratory: No Pertinent History Gastrointestinal: Cholecystectomy Genitourinary: No Pertinent History Musculoskeletal: Amputation, Joint Replacement, Orthopedic Surgery Female Surgical History: Hysterectomy, Other Other Surgical History: bilateral cataracts, bladder surgery, intestinal and stomach surgery, hiatal hernia repair, back surgery. right hip replacement, right knee replacement, I&D of rt knee. Patient disoriented and poor h istorian. All medical history obtained from previous documentation. - Social History Smoking Status: Former smoker How long have you smoked: 40 Exposure to second hand smoke: No Drug Use: none Patient Lives Alone: No - Female History Hx Now: No - Nursing Vital Signs Nursing Vital Signs: Initial Vital Signs Temperature 98.1 F 08/06/21 16:44 Pulse Rate 59 L 08/06/21 16:44 Respiratory Rate 17 08/06/21 16:44 Blood Pressure 102/44 08/06/21 16:44 O2 Sat by Pulse Oximetry 96 08/06/21 16:44 Pain Scale Pain Intensity [Right Hip] 10 Pain Intensity 10 - Physical Exam General Appearance: no apparent distress, alert, anxiety, obese Eyes, Ears, Nose, Throat Exam: normal ENT inspection, moist mucous membranes Neck Exam: normal inspection, non-tender, supple, full range of motion Cardiovascular/Respiratory Exam: chest non-tender, no respiratory distress Gastrointestinal/Abdominal Exam: non-tender Back Exam: normal inspection, normal range of motion, No CVA tenderness, No ruddy tebral tenderness Hips Exam: right: pain (Right hip. Patient is a right [id number] amputee), left: non-tender, normal inspection, normal range of motion, no evidence of i njury Legs Exam: right leg: other (Right fsbsm-rnk-isgr amputation), left leg: non- tender, normal inspection, normal range of motion, no evidence of injury Knees Exam: right knee: other (Right [id number] amputation), left knee: non- tender, normal inspection, normal range of motion, no evidence of injury Ankle Exam: left ankle: non-tender, normal inspection, normal range of motion, no evidence of injury Foot Exam: right foot: other (Right [id number] amputation), left foot: non- tender, normal inspection, normal range of motion, no evidence of injury Neuro/Tendon Exam: normal sensation (Left leg), normal motor functions (Left leg), normal tendon functions (Left leg) Mental Status Exam: alert, oriented x 3, cooperative Skin Exam: normal color, warm, dry SpO2 Interpretation: normal SpO2: 96 O2 Delivery: Room Air - Course Nursing assessment & vital signs reviewed: Yes EKG Interpreted by Me: RATE, A-fib, Other (Initial EKG at 4:56 PM shows ventricular bigeminy possible acute inferior infarction and prolonged QT interval. Patient has several PVCs present.) Ordered Tests: Active Orders 24 hr Category Date Time Status EKG-ER Only STAT Care 08/06/21 17:13 Active IV Insertion STAT Care 08/06/21 17:13 Active Pulse Oximetry (ED) STAT Care 08/06/21 17:13 Active CHEST 1 VIEW (PORTABLE) Stat Exams 08/06/21 17:12 Taken CBC W DIFF Stat Lab 08/06/21 17:10 Completed CMP Stat Lab 08/06/21 17:10 Completed D-DIMER QUANTITATIVE Stat Lab 08/06/21 17:10 Completed Manual Differential NC Stat Lab 08/06/21 17:10 Completed NT PRO BNP Stat Lab 08/06/21 17:10 Completed TROPONIN Q3H Lab 08/06/21 17:15 Ordered TROPONIN Q3H Lab 08/06/21 20:15 Ordered TROPONIN Q3H Lab 08/06/21 23:15 Ordered TROPONIN Q3H Lab 08/07/21 02:15 Ordered TROPONIN Q3H Lab 08/07/21 05:15 Ordered Medication Summary Generic Name Dose Route Start Last Admin Trade Name Freq PRN Reason Stop Dose Admin Sodium Chloride 1,000 mls @ 999 mls/hr 08/06/21 17:41 08/06/21 17:44 Sodium Chloride 0.9% 1000 Ml IV 08/06/21 18:41 999 mls/hr .Q1H1M STA Administration Discontinued Medications Generic Name Dose Route Start Last Admin Trade Name Freq PRN Reason Stop Dose Admin Aspirin 324 mg 08/06/21 17:13 08/06/21 17:18 Aspirin 81 Mg Tab.Chew PO 08/06/21 17:14 324 mg STAT ONE Administration Heparin Sodium (Beef Lung) 5,000 unit 08/06/21 17:41 08/06/21 17:45 Heparin 5000 Unit/0.5 Ml Syringe IV 08/06/21 17:42 5,000 unit STAT ONE Administration Heparin Sodium (Beef Lung) Confirm 08/06/21 17:43 Heparin 5000 Unit/0.5 Ml Syringe Administered 08/06/21 17:44 Dose 5,000 unit .ROUTE .STK-MED ONE Sodium Chloride Confirm 08/06/21 17:43 Sodium Chloride 0.9% 1000 Ml Administered 08/06/21 17:44 Dose 1,000 mls @ ud .ROUTE .STK-MED ONE Lab/Rad Data: Laboratory Result Diagrams 08/06/21 17:10 08/06/21 17:10 Laboratory Results 08/06/21 08/06/21 08/06/21 Range/Units 17:10 17:10 17:10 WBC 12.6 H (4.0-10.5) K/mm3 RBC 3.86 L (4.1-5.4) M/mm3 Hgb 12.0 (12.0-16.0) gm/dl Hct 37.2 (35-47) % MCV 96.4 (78-100) fl MCH 31.1 (26-32) pg MCHC 32.3 (32-36) g/dl RDW 14.7 H (11.5-14.0) % Plt Count 431 (150-450) K/mm3 MPV 9.5 (7.5-11.0) fl D-Dimer 3928 H* (215-500) ng/mL Sodium 137 (137-145) mmol/L Potassium 3.6 (3.5-5.1) mmol/L Chloride 94 L (98-107) mmol/L Carbon Dioxide 35 H (22-30) mmol/L Anion Gap 11.3 (5-15) MEQ/L BUN 8 (7-17) mg/dL Creatinine 0.58 (0.52-1.04) mg/dL Estimated GFR > 60.0 ML/MIN Glucose 97 (74-106) mg/dL Calcium 8.3 L (8.4-10.2) mg/dL Total Bilirubin 0.60 (0.2-1.3) mg/dL AST 45 H (14-36) U/L ALT 34 (0-35) U/L Alkaline Phosphatase 108 (38-126) U/L NT-Pro-B Natriuret Pep 389 (0-900) pg/mL Serum Total Protein 6.0 L (6.3-8.2) g/dL Albumin 3.6 (3.5-5.0) g/dL - Progress Progress: improved, re-examined Progress Note: 08/06/21 17:22 Upon arrival to the emergency department there was a question on the EKG whether or not there is actually inferior acute CT. However I had them immediately repeat a second 1 and it looks more like her old EKGs. I do not believe she has an actual inferior acute CT. However I did speak with Dr. Bauer, emergency room physician at [facility] and he reviewed the EKGs as well. He is not convinced it is an acute CT. He is sending the EKG to cardiology and they will contest us back. We will continue with the work-up. 08/06/21 17:56 Second EKG was performed at 0503 there is no longer atrial fibrillation but sinus rhythm. There is multiple PVCs present there continues to be possible elevation of inferior leads. There is persistent prolonged QT interval. I compared these to old EKGs in there are similar findings when compared to 07/29/2021. I sent the EKGs to Dr. Bauer's emergency room physician at [facility] he is not necessarily convinced this is an acute STEMI in the inferior leads. However, we sent the EKGs to Dr. Juarez, ticket marker. He feels that th e patient has an atypical presentation of an acute inferior infarction. Patient had already received aspirin and he wants to add heparin to the patient's regimen and infuse a liter of fluid as a bolus of normal saline. He then requested we send the patient swiftly out to the cardiac Rotor Pilot at [facility] - Departure Departure Disposition: Transfer Clinical Impression: ST elevation myocardial infarction (STEMI) of inferior wall Condition: Stable Critical Care Time: Yes Critical Care Time(excluding separately billable procedures): Critical 30-74 mins (30 minutes) Referrals: TESSY SAMUELS [Primary Care Provider] - Follow up/PCP as directed
[2021-08-06] MEDS ORDERED: BABY ASPIRIN 81 MG CHEW PO ONE (17:13)
[2021-08-06 17:19] LABS: Hematocrit 37.2 % (35-47); Mean Cell Volume 96.4 fl (78-100); Mean Corpuscular Hemoglobin 31.1 pg (26-32); Mean Corpuscular Hgb Concent. 32.3 g/dl (32-36); Mean Platelet Volume 9.5 fl (7.5-11.0); Platelet Count 431 K/mm3 (150-450); Red Blood Count 3.86 M/mm3 (4.1-5.4); Red Cell Distribution Width 14.7 % (11.5-14.0); White Blood Count 12.6 K/mm3 (4.0-10.5)
[2021-08-06 17:37] LABS: ALBUMIN 3.6 g/dL (3.5-5.0); ALKALINE PHOSPHATASE 108 U/L (38-126); ANION GAP 11.3 MEQ/L (5-15); BLOOD UREA NITROGEN 8 mg/dL (7-17); CHLORIDE 94 mmol/L (98-107); Calcium 8.3 mg/dL (8.4-10.2); Carbon Dioxide 35 mmol/L (22-30); Creatinine 1 0.58 mg/dL (0.52-1.04); EST GLOMERULAR FILTRATION RATE > 60.0 ML/MIN; Glucose 97 mg/dL (74-106); NT PRO BNP 389 pg/mL (0-900); Potassium 3.6 mmol/L (3.5-5.1); SGOT/AST 45 U/L (14-36); SGPT/ALT 34 U/L (0-35); SODIUM 137 mmol/L (137-145)
[2021-08-06] MEDS ORDERED: Heparin 5000 UNITS/0.5 ML (HIGH RISK MED) IV ONE (17:41)
[2021-08-06] MEDS ORDERED: Sodium Chloride 0.9% 1000 ML 1,000 ML IV STA (17:41)
[2021-08-06] MEDS ORDERED: Heparin 5000 UNITS/0.5 ML (HIGH RISK MED) ONE (17:43)
[2021-08-06] MEDS ORDERED: Sodium Chloride 0.9% 1000 ML 1,000 ML ONE (17:43)
[2021-08-06 18:35] LABS: Basophil 1 % (0.0-1.0); Lymphocytes 11 % (24-44); Monocyte 5 % (0.0-12.0); Neutrophils 83 % (36.0-66.0); Platelet Estimate NORMAL (NORMAL); Total Cells Counted 100
--- NOTE | 2021-08-07 08:42 | XRAY ---
Indication: Cough. Comparison: July 28, 2021. Portable chest remains clear. Heart not enlarged again with tiny left perihilar calcified granulomas.. Bony thorax intact again with osteopenia, degenerative changes, old left 8 rib fracture, T8-T11 kyphoplasty, and lower cervical fusion. Impression: Continued nonacute chest with chronic features.
== END 2021-08-06 18:03 | disposition short-term general hospital (02) ==
LOC: ED 16:41
DX: I21.19 ST elevation (STEMI) myocardial infarction involving other coronary artery of inferior wall (principal); I10 Essential (primary) hypertension; E78.5 Hyperlipidemia, unspecified; J44.9 Chronic obstructive pulmonary disease, unspecified; M25.551 Pain in right hip; M54.9 Dorsalgia, unspecified; Z89.611 Acquired absence of right leg above knee; Z79.891 Long term (current) use of opiate analgesic
CPT/HCPCS: 36000; 36415; 71045; 80053; 83880; 84484; 85025; 85379; 93005; 94760; 96374; 99284; 99291; J1644; A9270-GY

== ENCOUNTER 2022-04-10 15:33 | Emergency (ER) | payer MEDICARE ==
[2022-04-10 15:59] VITALS: PULSE 75
--- NOTE | 2022-04-10 16:19 | ERPHSYRPT ---
- History of Present Illness Time Seen by Provider: 04/10/22 15:55 Source: patient Exam Limitations: no limitations Patient Subjective Stated Complaint: pt sent down from [facility] to be seen for possible covid, pt co pain all over, vomiting x2 cough. Triage Nursing Assessment: pt alert,arrived per [facility] resp easy, skin w/d/p. no cough, face mask in place, has right leg amputation, Physician History: 71-year-old female with history of atrial fibrillation status post pacemaker/defibrillator placement, hypertension, hyperlipidemia, COPD, right above-knee amputation presented in the ER with flulike symptoms for the last 4 days. Patient has a positive contact with grandson who has COVID-19. Patient reports having off-and-on wet to dry cough with body aches fatigue tiredness and has nausea with 2 episodes of vomiting in the last 4 days. No abdominal pain or diarrhea reported. No fever or chills. Patient went to [facility] and then sent in here for further evaluation. Denies any difficulty breathing. Not in any distress. Timing/Duration: day(s) (4), gradual onset, worse Cough Quality/Degree: moderate, dry cough Possible Cause: illness exposure Modifying Factors: Worsens With: coughing Associated Symptoms: chest pain/soreness, cough, headache, muscle aches, nasal congestion, nasal drainage, sinus infection, sore throat, No fever, No shortness of breath Allergies/Adverse Reactions: ciprofloxacin [From Cipro] Allergy (Severe, Verified 04/10/22 15:55) Swelling diphenhydramine HCl [From Benadryl] Allergy (Intermediate, Verified 04/10/22 15:55) swelling, hives, seizures pentazocine lactate [From Talwin] Allergy (Intermediate, Verified 04/10/22 15:55) swelling, hives Penicillins Allergy (Verified 04/10/22 15:55) swelling,hives Home Medications: Hydrocodone/Acetaminophen [Hydrocodone-Acetamin 10-325 mg] 1 ea PO QID PRN PRN 01/24/17 [History] Albuterol Sulfate 4 mg PO DAILY 07/29/21 [History] Amitriptyline HCl 25 mg [Amitriptyline 25 mg Tablet] 25 mg PO HS 07/29/21 [History] Atorvastatin Calcium [Lipitor] 40 mg PO DAILY 07/29/21 [History] Calcium Citrate/Vitamin D3 [Citracal-D3 200Mg-250 Unit Tab] 2 each PO TID 07/29/21 [History] Cariprazine HCl [Vraylar] 3 mg PO QHS 07/29/21 [History] Furosemide [Lasix] 20 mg PO DAILY 07/29/21 [History] Gabapentin [Neurontin ] 600 mg PO TID 07/29/21 [History] Iron Polysaccharides Complex [Ferrex 150] 150 mg PO DAILY 07/29/21 [History] Lorazepam 1 mg [Ativan 1 MG] 1 mg PO TID 07/29/21 [History] Metoprolol Succinate [Toprol Xl] 25 mg PO DAILY 07/29/21 [History] Morphine Sulfate [Morphine Sulfate ER] 15 mg PO BID 07/29/21 [History] Multivitamin with Minerals [One Daily Complete] 1 each PO DAILY 07/29/21 [History] Oxybutynin Chloride [Oxybutynin Chloride ER] 5 mg PO DAILY 07/29/21 [History] Potassium Gluconate [Potassium] 99 mg PO DAILY 07/29/21 [History] Sertraline HCl [Zoloft] 100 mg PO LUNCH 07/29/21 [History] Sotalol HCl [Sotalol] 160 mg PO BID 07/29/21 [History] Spironolactone [Aldactone] 12.5 mg PO DAILY 07/29/21 [History] lisinopriL [Lisinopril] 2.5 mg PO DAILY 07/29/21 [History] Hx Tetanus, Diphtheria Vaccination/Date Given: Yes Hx Influenza Vaccination/Date Given: Yes Hx Pneumococcal Vaccination/Date Given: Yes Immunizations Up to Date: Yes Travel Risk - International Travel Have you traveled outside of the country in past 3 weeks: No - Coronavirus Screening Are you exhibiting any of the following symptoms?: Yes Symptoms: Fever, Cough: New Onset, Headaches/Body Aches/Fatigue Close contact with a COVID-19 positive Pt in past 14-21 Days: Yes - Vaccine Status Have you recieved a Covid-19 vaccination: Yes 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 - Vaccination Dates Date of 2cond Vaccination (if applicable): 10/2020 - Review of Systems Constitutional: Fatigue, Weakness Eyes: No Symptoms Ears, Nose, & Throat: Nose Congestion Respiratory: Cough Abdominal/Gastrointestinal: Nausea, Vomiting Genitourinary Symptoms: No Symptoms Musculoskeletal: Myalgias Skin: No Symptoms Neurological: Headache Psychological: No Symptoms Endocrine: No Symptoms Hematologic/Lymphatic: No Symptoms Immunological/Allergic: No Symptoms - Past Medical History Pertinent Past Medical History: Yes Neurological History: Migraines ENT History: Cataracts Cardiac History: Hypertension Respiratory History: COPD Endocrine Medical History: Hypothyroidism Musculoskeletal History: Other GI Medical History: Diverticulosis History: No Pertinent History Psycho-Social History: No Pertinent History Female Reproductive Disorders: No Pertinent History Other Medical History: mitral valve prolapse, R AKA. *Patient disoriented and poor historian. All medical history obtained from previous documentation. - Past Surgical History Past Surgical History: Yes Neuro Surgical History: No Pertinent History Cardiac: Cardiac Catheterization Respiratory: No Pertinent History Gastrointestinal: Cholecystectomy Genitourinary: No Pertinent History Musculoskeletal: Amputation, Joint Replacement, Orthopedic Surgery Female Surgical History: Hysterectomy, Other Other Surgical History: bilateral cataracts, bladder surgery, intestinal and stomach surgery, hiatal hernia repair, back surgery. right hip replacement, right knee replacement, I&D of rt knee. Patient disoriented and poor historian. All medical history obtained from previous documentation. - Social History Smoking Status: Former smoker How long have you smoked: 40 Exposure to second hand smoke: No Drug Use: none Patient Lives Alone: No - Nursing Vital Signs Nursing Vital Signs: Initial Vital Signs Temperature 98.2 F 04/10/22 15:47 Pulse Rate 75 04/10/22 15:47 Respiratory Rate 18 04/10/22 15:47 Blood Pressure 110/58 04/10/22 15:47 O2 Sat by Pulse Oximetry 93 L 04/10/22 15:47 Pain Scale Pain Intensity 0 - Physical Exam General Appearance: no apparent distress, alert Eye Exam: PERRL/EOMI, eyes nml inspection Ears, Nose, Throat Exam: TMs normal, pharyngeal erythema Neck Exam: normal inspection, supple, full range of motion Respiratory Exam: normal breath sounds, lungs clear Cardiovascular Exam: regular rate/rhythm, normal heart sounds Gastrointestinal/Abdomen Exam: soft, normal bowel sounds, No tenderness Back Exam: normal inspection, normal range of motion Extremity Exam: normal inspection, normal range of motion, other (Right above-kn ee amputation) Neurologic Exam: alert, oriented x 3, cooperative, 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 Skin Exam: normal color SpO2 Interpretation: normal SpO2: 93 O2 Delivery: Room Air Ordered Tests: Active Orders 24 hr Category Date Time Status IV Insertion STAT Care 04/10/22 16:15 Active CHEST 1 VIEW (PORTABLE) Stat Exams 04/10/22 15:48 Taken BLOOD CULTURE Stat Lab 04/10/22 17:02 Received CBC W DIFF Stat Lab 04/10/22 17:01 Completed CMP Stat Lab 04/10/22 17:01 Completed LIPASE Stat Lab 04/10/22 17:01 Completed Lactic Acid Stat Lab 04/10/22 16:55 Completed TROPONIN Q4H Lab 04/10/22 17:01 Completed TROPONIN Q4H Lab 04/10/22 20:15 Ordered TROPONIN Q4H Lab 04/11/22 00:15 Ordered UA W/RFX CULTURE Stat Lab 04/10/22 Ordered Lab/Rad Data: Laboratory Result Diagrams 04/10/22 17:01 04/10/22 17:01 Laboratory Results 04/10/22 04/10/22 04/10/22 Range/Units 17:01 17:01 17:01 WBC 10.6 H (4.0-10.5) x10^3/uL RBC 4.06 L (4.1-5.4) x10^6/uL Hgb 12.9 (12.0-16.0) g/dL Hct 38.6 (35-47) % MCV 95.1 (78-100) fL MCH 31.8 (26-32) pg MCHC 33.4 (32-36) g/dL RDW 12.3 (11.5-14.0) % Plt Count 229 (150-450) x10^3/uL MPV 9.7 (7.5-11.0) fL Gran % 67.9 H (36.0-66.0) % Immature Gran % (Auto) 0.4 (0.00-0.4) % Nucleat RBC Rel Count 0.0 (0.00-0.1) % Eos # (Auto) 0.16 (0-0.5) x10^3/uL Immature Gran # (Auto) 0.04 H (0.00-0.03) x10^3u/L Absolute Lymphs (auto) 1.89 (1.0-4.6) x10^3/uL Absolute Monos (auto) 1.27 (0.0-1.3) x10^3/uL Absolute Nucleated RBC 0.00 (0.00-0.01) x10^3u/L Lymphocytes % 17.8 L (24.0-44.0) % Monocytes % 11.9 (0.0-12.0) % Eosinophils % 1.5 (0.00-5.0) % Basophils % 0.5 (0.0-0.4) % Absolute Granulocytes 7.22 H (1.4-6.9) x10^3/uL Basophils # 0.05 (0-0.4) x10^3/uL Sodium 133 L (137-145) mmol/L Potassium 4.4 (3.5-5.1) mmol/L Chloride 98 (98-107) mmol/L Carbon Dioxide 28 (22-30) mmol/L Anion Gap 11.2 (5-15) MEQ/L BUN 13 (7-17) mg/dL Creatinine 0.92 (0.52-1.04) mg/dL Estimated GFR > 60.0 ML/MIN Glucose 101 (74-106) mg/dL Lactic Acid (0.4-2.0) Calcium 9.0 (8.4-10.2) mg/dL Total Bilirubin 0.50 (0.2-1.3) mg/dL AST 23 (14-36) U/L ALT 19 (0-35) U/L Alkaline Phosphatase 97 (38-126) U/L Troponin I < 0.012 (0.000-0.034) ng/mL Serum Total Protein 6.4 (6.3-8.2) g/dL Albumin 3.7 (3.5-5.0) g/dL Lipase 52 (23-300) U/L Influenza Type A Ag (NEGATIVE) Influenza Type B Ag (NEGATIVE) RSV (PCR) (Negative) SARS-CoV-2 (PCR) (NEGATIVE) 04/10/22 04/10/22 Range/Units 16:55 16:00 WBC (4.0-10.5) x10^3/uL RBC (4.1-5.4) x10^6/uL Hgb (12.0-16.0) g/dL Hct (35-47) % MCV (78-100) fL MCH (26-32) pg MCHC (32-36) g/dL RDW (11.5-14.0) % Plt Count (150-450) x10^3/uL MPV (7.5-11.0) fL Gran % (36.0-66.0) % Immature Gran % (Auto) (0.00-0.4) % Nucleat RBC Rel Count (0.00-0.1) % Eos # (Auto) (0-0.5) x10^3/uL Immature Gran # (Auto) (0.00-0.03) x10^3u/L Absolute Lymphs (auto) (1.0-4.6) x10^3/uL Absolute Monos (auto) (0.0-1.3) x10^3/uL Absolute Nucleated RBC (0.00-0.01) x10^3u/L Lymphocytes % (24.0-44.0) % Monocytes % (0.0-12.0) % Eosinophils % (0.00-5.0) % Basophils % (0.0-0.4) % Absolute Granulocytes (1.4-6.9) x10^3/uL Basophils # (0-0.4) x10^3/uL Sodium (137-145) mmol/L Potassium (3.5-5.1) mmol/L Chloride (98-107) mmol/L Carbon Dioxide (22-30) mmol/L Anion Gap (5-15) MEQ/L BUN (7-17) mg/dL Creatinine (0.52-1.04) mg/dL Estimated GFR ML/MIN Glucose (74-106) mg/dL Lactic Acid 0.7 (0.4-2.0) Calcium (8.4-10.2) mg/dL Total Bilirubin (0.2-1.3) mg/dL AST (14-36) U/L ALT (0-35) U/L Alkaline Phosphatase (38-126) U/L Troponin I (0.000-0.034) ng/mL Serum Total Protein (6.3-8.2) g/dL Albumin (3.5-5.0) g/dL Lipase (23-300) U/L Influenza Type A Ag NEGATIVE (NEGATIVE) Influenza Type B Ag NEGATIVE (NEGATIVE) RSV (PCR) NEGATIVE (Negative) SARS-CoV-2 (PCR) NEGATIVE (NEGATIVE) - Progress Progress: re-examined Air Movement: good Progress Note: 04/10/22 17:52 71-year-old is evaluated for flulike symptoms with worsening cough. She has a white count of 10, normal lactate, x-ray showed infiltrative process on the rig ht reviewed by me, official report is pending. Patient is a hard stick and does not want to be stuck again. She is maintaining oxygen saturation at room air around 94%. Not in any distress. I would give her doxycycline to go home and recommended continue with inhaler/nebulizer. Discussed signs symptoms of worsening needing return to ER which she seems understanding. Patient does understand that she does not have full work-up done which could have revealed more pathology, wanted to leave AMA as she said all she worried about is a COVID-19 which is negative. She is not in any distress, I would discharge her and encouraged outpatient follow-up. Blood Culture(s) Obtained: No Antibiotics given: Yes Counseled pt/family regarding: lab results, diagnosis, need for follow-up, rad results - Departure Departure Disposition: Home Clinical Impression: Pneumonia Condition: Stable Critical Care Time: No Referrals: [facility] [NON-STAFF PHY W/O PRIVILEGES] - Follow up/PCP as directed (2 days for reevaluation) Instructions: Pneumonia, Adult (DC) Additional Instructions: Take Tylenol as needed for fever, continue with inhaler/nebulizer as recommended. Continue with antibiotics. Follow-up with primary care for reevaluation. Return to ER for worsening cough or have having difficulty breathing etc. Prescriptions: Doxycycline Hyclate 100 mg [Vibramycin 100 MG] 100 mg PO BID #16 tab
[2022-04-10 16:42] LABS: INFLUENZA A NEGATIVE (NEGATIVE); INFLUENZA B NEGATIVE (NEGATIVE); RESPIRATORY SYNCTIAL VIRUS NEGATIVE (Negative); SARS-CoV-2 Xpert Express NEGATIVE (NEGATIVE)
[2022-04-10 17:04] LABS: Absolute Neutrophil Ct (ANC) 7.22 x10^3/uL (1.4-6.9); Basophil (Absolute #) 0.05 x10^3/uL (0-0.4); Eosinophil % 1.5 % (0.00-5.0); Eosinophil (Absolute #) 0.16 x10^3/uL (0-0.5); Hematocrit 38.6 % (35-47); Hemoglobin 12.9 g/dL (12.0-16.0); Lymphocyte (Absolute #) 1.89 x10^3/uL (1.0-4.6); Lymphocytes % 17.8 % (24.0-44.0); Mean Cell Volume 95.1 fL (78-100); Mean Corpuscular Hemoglobin 31.8 pg (26-32); Mean Corpuscular Hgb Concent. 33.4 g/dL (32-36); Mean Platelet Volume 9.7 fL (7.5-11.0); Monocyte (Absolute #) 1.27 x10^3/uL (0.0-1.3); Monocytes % 11.9 % (0.0-12.0); Neutrophil % 67.9 % (36.0-66.0); Platelet Count 229 x10^3/uL (150-450); Red Blood Count 4.06 x10^6/uL (4.1-5.4); Red Cell Distribution Width 12.3 % (11.5-14.0); White Blood Count 10.6 x10^3/uL (4.0-10.5)
[2022-04-10 17:24] LABS: ALBUMIN 3.7 g/dL (3.5-5.0); ALKALINE PHOSPHATASE 97 U/L (38-126); ANION GAP 11.2 MEQ/L (5-15); BLOOD UREA NITROGEN 13 mg/dL (7-17); CHLORIDE 98 mmol/L (98-107); Carbon Dioxide 28 mmol/L (22-30); Creatinine 1 0.92 mg/dL (0.52-1.04); EST GLOMERULAR FILTRATION RATE > 60.0 ML/MIN; Glucose 101 mg/dL (74-106); LIPASE 52 U/L (23-300); Potassium 4.4 mmol/L (3.5-5.1); SGOT/AST 23 U/L (14-36); SGPT/ALT 19 U/L (0-35); SODIUM 133 mmol/L (137-145); Total Protein 6.4 g/dL (6.3-8.2)
[2022-04-10 17:37] VITALS: BP 102/66
[2022-04-10] MEDS ORDERED: Vibramycin 100 MG PO ONE (17:51)
[2022-04-10] MEDS ORDERED: Vibramycin 100 MG ONE (17:55)
[2022-04-10 17:56] VITALS: O2SAT 93
--- NOTE | 2022-04-10 21:24 | XRAY ---
Indication: Cough and short of breath. Covid 19 exposure. COPD. Comparison: August 06, 2021 Portable chest demonstrates new right base infiltrate/atelectasis and left AICD. Remaining heart and lungs unremarkable. Bony thorax intact again with osteopenia, degenerative changes, T8-T11 kyphoplasty, and lower cervical fusion hardware.
== END 2022-04-10 18:00 | disposition home or self-care (01) ==
LOC: ED 15:33
DX: J18.9 Pneumonia, unspecified organism (principal); R05.9 Cough, unspecified; M79.10 Myalgia, unspecified site; R53.83 Other fatigue; R11.2 Nausea with vomiting, unspecified; I10 Essential (primary) hypertension; E78.5 Hyperlipidemia, unspecified; J44.9 Chronic obstructive pulmonary disease, unspecified; Z79.899 Other long term (current) drug therapy; Z20.822 Contact with and (suspected) exposure to COVID-19
CPT/HCPCS: 0241U; 36415; 71045; 80053; 83605; 83690; 84484; 85025; 87040; 99283; A9270-GY